=== PATIENT | male | born 1990 | race Caucasian/White ===

== ENCOUNTER 2023-11-01 10:48 | Emergency (ER) | payer SELFPAY ==
--- NOTE | ~2023-11-01 | XR_ITS ---
EXAMINATION: XR finger 1st RT min 2V DATE: 11/01/2023 15:15 INDICATION: Right thumb pain and swelling. TECHNIQUE: 3 views of right thumb were obtained. COMPARISON: None. FINDINGS: Bone alignment is normal. No fracture. There is no evidence of osteomyelitis. Joint spaces are normal. IMPRESSION: 1. Normal right thumb. Reviewed, dictated and finalized at location A. R MAN IMPRESSION: 1. Normal right thumb.
[2023-11-01 11:35] VITALS: BP 133/77; PULSE 100; RESP 15; TEMP 36.8; O2SAT 100
--- NOTE | 2023-11-01 15:02 | ED.WOUNDLAC ---
HPI - Wound/Laceration General Chief Complaint: Wound/Laceration Stated Complaint: wound - RIGHT thumb (FB on anx), diabetic Time Seen by Provider: 11/01/23 15:02 History of Present Illness HPI narrative: Patient is a 33-year-old male with history of type 1 diabetes here with right thumb wound x2 weeks. He notes that he works with [employer] and believes he may have gotten a small piece of glass in his right thumb about 2 weeks ago. He has been monitoring at home it seemed to worsen. He went in to a urgent care outpatient in the last week and they performed an I and D, attempted to find a possible foreign body in his thumb and started him on Bactrim. He has had continued worsening of his pain and swelling. The swelling of his thumb limits his ability to bend the thumb. He denies any drainage from the wound. No fever, chills. He does note that his blood surgars have been running high in the 200s at home. Last short acting bolus was 6 units given around 1 pm. Related Data Allergies Allergy/AdvReac Type Severity Reaction Status Date / Time amoxicillin Allergy Unknown Verified 11/01/23 16:47 Review of Systems Review of Systems: All systems reviewed & are unremarkable except as noted in HPI and below Exam Narrative: GENERAL: Well-appearing, well-nourished, and in no acute distress. HEAD: Normocephalic, atraumatic. EYES: PERRLA and EOMI. ENT: Nares clear. Mucous membranes moist. NECK: Supple. CHEST: Clear to auscultation. No respiratory distress. HEART: Regular rate and rhythm. Normal peripheral pulses. ABDOMEN: Soft, nontender, nondistended. EXTREMITIES: Normal range of motion. No edema. SKIN: Erythema to the tip of the right thumb extending from the IP joint distally. Corresponding swelling present with yellow/white discoloration over the pulp of the thumb. Tender to touch. NEURO: No focal deficits. Alert and oriented x3. PSYCH: Normal mood and affect. Course Course Emergency Course: Chart review performed. Patient here with thumb wound and high blood sugars. Triage vitals normal. Patient seen evaluated, nontoxic appearing. He does have an mildly elevated blood glucose at 273. Suspect felon vs abscess at site of prior I&D based on exam. Basic lab work, CRP/ESR, DKA labs ordered. Discussed need for I&D with patient. Agreeable. Lab work and imaging reviewed. No leukocytosis, venous pH elevated at 7.5, no anion gap, unlikely DKA. Attempt at lateral approach to I&D with dissection, terminated due to poor patient tolerance. Small amount of purulent discharge from the wound itself. Kept open, applied bacitracin. Will refer to hand surgery and start on clindamycin. The results of pertinent diagnostic studies and exam findings were discussed. The patient?s provisional diagnosis and plan of care were discussed with the patient and present family. The patient and/or present family expressed understanding of the diagnosis and plan. The nurse was instructed to provide written instructions and appropriate follow-up information. The patient understands their need and responsibility to obtain additional follow-up as instructed. The risks of medications administered and prescribed were discussed with the patient and family present. Vital Signs Vital signs: Vital Signs Temperature 98.2 F 11/01/23 11:35 Pulse Rate 100 11/01/23 11:35 Respiratory Rate 15 11/01/23 11:35 Blood Pressure 133/77 11/01/23 11:35 Pulse Oximetry 100 11/01/23 11:35 Oxygen Delivery Room Air 11/01/23 11:35 Temperature 98.2 F 11/01/23 11:35 Pulse Rate 100 11/01/23 11:35 Respiratory Rate 15 11/01/23 11:35 Blood Pressure 133/77 11/01/23 11:35 Pulse Oximetry 100 11/01/23 11:35 Oxygen Delivery Room Air 11/01/23 11:35 Procedures Abscess I/D hand: Date of Incision: 11/01/23 Time of Incision: 19:28 Side (if applicable): right Local Anesthetic: lidocaine 1% Amount of anesthesia used (mL):
[2023-11-01 15:31] LABS: Fractional Inspired Oxygen 21 %; HCO3 VBG 22.7 mEq/l (24.0-30.0); PO2 VBG 49.4 mmHg (35.0-45.0)
[2023-11-01 15:32] LABS: Device ROOM AIR; PCO2 VBG 27.3 mmHg (42.0-48.0); pH VBG 7.538 (7.300-7.400)
[2023-11-01 15:44] LABS: Glucose Point of Care 273 mg/dl (65-105)
[2023-11-01 15:51] LABS: Basophils Absolute Auto 0.1 K/mm3 (0.0-0.1); Basophils Percent Auto 0.6 % (0.2-1.2); Eosinophils Absolute Auto 0.3 K/mm3 (0-0.3); Eosinophils Percent Auto 2.5 % (0-4.4); Hematocrit 45.9 % (42.0-52.0); Hemoglobin 14.9 g/dL (14.0-18.0); Immature Granulocyte Absolute 0.03 K/mm3 (0.00-0.031); Immature Granulocyte Percent A 0.3 % (0-0.5); Lymphocytes Absolute Auto 1.91 K/mm3 (0.9-3.2); Lymphocytes Percent Auto 19.1 % (18.3-44.2); Mean Corpuscular HGB Conc 32.5 g/dl (32-36); Mean Corpuscular Hemoglobin 30.4 pg (26-34); Mean Corpuscular Volume 93.7 fl (80-100); Mean Platelet Volume 11.3 fl (7.4-10.4); Monocytes Absolute Auto 0.6 K/mm3 (0.1-0.6); Monocytes Percent Auto 6.2 % (2.6-8.5); Neutrophils Absolute Auto 7.2 K/mm3 (1.3-6.7); Neutrophils Percent Auto 71.3 % (45.5-73.1); Platelet Count Result 216 k/mm3 (150-375); Red Cell Distribution Width 12.6 % (11.5-14.5)
[2023-11-01 16:18] LABS: Erythrocyte Sedimentation Rate 9 mm/hr (0-20)
[2023-11-01] MEDS: CLINDAMYCIN HCL 150 MG CAP 600 MG PO (16:57)
[2023-11-01 17:50] LABS: Alanine Aminotransferase 14 U/L (6-50); Albumin Level 4.2 g/dL (3.5-5.1); Alkaline Phosphatase 105 U/L (38-126); Anion Gap 5 mmol/L (8-16); Aspartate Amino Transferase 18 U/L (17-59); Bilirubin,Total 0.4 mg/dL (0.2-1.3); Blood Urea Nitrogen 13 mg/dL (9-20); CRP 2.1 mg/dL (<1.0); Carbon Dioxide 29 mmol/L (22-30); Chloride 101 mmol/L (98-107); Estimated CRCL calculation 142 ml/min; Estimated Glomerular Filt Rate > 60; Glucose 235 mg/dL (65-110); Potassium 4.4 mmol/L (3.4-5.0); Sodium 135 mmol/L (137-145)
--- NOTE | 2023-11-01 19:15 | PC.NURSE ---
Report received from CARMINE Smyth. Assumed care of patient at this time.
[2023-11-01] MEDS: ACETAMINOPHEN 500 MG TABLET 1000 MG PO (19:55)
[2023-11-01 20:01] VITALS: BP 137/88; PULSE 80; RESP 17; TEMP 36.6; O2SAT 97
== END 2023-11-01 20:03 | disposition home or self-care (01) ==
PROVIDERS: Emergency Provider Student in an Organized Health Care Education/Training Program
DX: L03.011 Cellulitis of right finger (principal)
CPT/HCPCS: 26010; 36415; 73140; 80053; 82803; 82948; 85025; 85055; 85652; 86140; 99283; A9270

== ENCOUNTER → 2023-11-06 09:29 | Outpatient (CLI) | payer OTHER, SELFPAY ==
--- NOTE | ~2023-11-06 | US_ITS ---
EXAMINATION: US soft tissue UE RT DATE: 11/06/2023 09:51 INDICATION: Foreign body at the right thumb TECHNIQUE: Multiple grayscale and Doppler ultrasound images of the palmar aspect of the right thumb w ere obtained. COMPARISON: Radiographs dated 11/01/2023 FINDINGS: There is a blisterlike elevation of the skin at the region of concern with small anechoic subdermal f luid collection extending approximately 2.4 cm x 1.6 cm extent and measuring up to 2 mm in thickness. There appears be a small defect in the skin surface. Medially deep to the defect and deep to the flu id collection there appears be an additional hypoechoic tract extending into an ill-defined approxima tely 1 cm diameter region of the palmar fat pad with mixed echogenic fat and anechoic fluid consisten t with phlegmonous change. No evident foreign body identified. IMPRESSION: 1. Small region of phlegmonous change at the thumb palmar fat pad with more superficial thin crescent ic blisterlike subdermal abscess. No evident foreign body. Reviewed, dictated and finalized at location A. T PROTECTION GUARD IMPRESSION: 1. Small region of phlegmonous change at the thumb palmar fat pad with more sup erficial thin crescentic blisterlike subdermal abscess. No evident foreign body .
== END ==
PROVIDERS: PCP Plastic Surgery; Visit Provider Plastic Surgery
DX: L08.9 Local infection of the skin and subcutaneous tissue, unspecified (principal); S60.359A Superficial foreign body of unspecified thumb, initial encounter; X58.XXXA Exposure to other specified factors, initial encounter
CPT/HCPCS: 76882

== ENCOUNTER 2023-11-07 07:04 | Day surgery (SDC) | payer OTHER, SELFPAY ==
[2023-11-05 14:45] VITALS: BMI 21.5
--- NOTE | 2023-11-06 11:42 | P.PNAN_ITS ---
Anes - Initial Pre Proc Eval Procedure: Operation Date: 11/07/23 08:30 Proposed Procedures p Incision and Drainage Right Thumb, Possible Excision Deep Foreign Body - Cruz Grissom MD Date/Time: 11/06/23 11:42 Surgeon: Cruz Grissom MD Pre Op Diagnosis: Foreign Body Right Thumb with Infection Patient Data Age: 33 Gender: M Height: 1.83 m Weight: 72 kg Allergies Allergy/AdvReac Type Severity Reaction Status Date / Time adhesive tape Allergy Intermediate Hives Verified 11/07/23 07:56 amoxicillin Allergy Intermediate Hives Verified 11/07/23 07:56 Home Medications Medication Instructions Recorded Confirmed Type cephalexin 500 mg capsule 500 mg PO Q6H 10 days #40 caps 11/01/23 11/07/23 Rx clindamycin HCl 150 mg capsule 450 mg PO Q8H 10 days #90 caps 11/01/23 11/07/23 Rx buspirone 7.5 mg tablet 7.5 mg PO DAILY 11/05/23 11/07/23 History escitalopram oxalate 20 mg tablet 20 mg PO DAILY 11/05/23 11/07/23 History insulin aspart U-100 100 unit/mL See Rx Instructions .Route .COMPLEX 11/05/23 11/07/23 History (3 mL) subcutaneous pen insulin degludec 100 unit/mL (3 50 unit subcut HS 11/05/23 11/07/23 History mL) subcutaneous pen pen needle, diabetic 32 gauge x 11/05/23 11/05/23 History (BD Joyce 2nd Gen Pen Needle) Patient hx anesthesia problems: none Family hx anesthesia problems: none Results Review: All pre-operative results and documents have been reviewed as part of the pre- operative evaluation. [facility] Social History Social History Smoking packs per day: 0.5 Smoking cigarettes per day: 10.0 Years smoked: 5 Smoking pack-years: 2.50 Smoking status: Current every day smoker Tobacco type: cigarettes Second hand tobacco smoke exposure: Yes Alcohol intake: current Drinks per week: 4 Alcohol use details: UNTIL RECENTLY PT DRANK 1-2 [place] DAILY Substance use: current Substance use type: marijuana Other substance usage details: ONCE A WEEK Living arrangements: alone Spiritual care concerns: No Anes - Eval Final PreProcedure Day of Procedure 11/06/23 11:42 Patient weight: normal Heart: regular rate and rhythm Lungs: clear to auscultation Airway: Mallampati scale class II Neurological: alert and oriented Last oral intake: >/= 8 hours ASA classification: III Emergent: no Anesthetic plan: proceed Anesthesia type and monitoring: general GIVS and standard monitoring Results Review: All pre-operative results and documents have been reviewed as part of the pre- operative evaluation. Informed Consent: The patient's anesthetic plan and its attendant risks and benefits were discussed with the patient/family/POA. Questions were solicited and answers provided to the satisfaction of the patient/family/POA.
[2023-11-07] MEDS: DEXTROSE 50% 25 GM/50 ML SYRINGE IV PUSH ×2 (07:45→09:36)
[2023-11-07] MEDS: LACTATED RINGERS 1,000 ML 30 ML IV CONT (07:45)
[2023-11-07] MEDS: DEXTROSE 5% IN WATER 250 ML 30 ML IV CONT (07:45)
[2023-11-07 07:52] LABS: Glucose Point of Care 60 mg/dl (65-105)
[2023-11-07 08:03] VITALS: BP 115/69; PULSE 72; RESP 18; TEMP 37.4; O2SAT 100; BMI 21.2
--- NOTE | 2023-11-07 08:05 | SUR.PREOP ---
0715; PT BROUGHT BACK TO PREOP, PT STATES HES NOT FEELING WELL. HE BELIEVES HIS BLOOD SUGAR IS LOW. 0720; ACCUCHECK 60; DR CAZARES NOTIFIED. ORDERS RECEIVED. PT GIVEN 4 OZ APPLE JUICE PO.
--- NOTE | 2023-11-07 08:13 | P.HPUP_ITS ---
History and Physical Update Update Date/Time: 11/07/23 08:13 Patient seen and examined in pre-operative holding area. No interval change in medical history or symptoms. Patient recalls previous discussion of benefits and alternatives to procedure. Continues to desire to proceed with right thumb exploration, I&D and possibel foreign body excision. Reviewed procedure, post- op expectations and risks including but not limited to bleeding, infection, injury to tendon/nerve/vessel, decreased hand function, stiffness, RSD, no change or worsening of symptoms. I discussed the possible use of assistants and their participation in the case. Patient stated understanding and signed the consent form wishing to proceed.
--- NOTE | 2023-11-07 08:13 | P.OP_ITS ---
Procedure Note - Detailed Date of Procedure 11/07/23 Pre-op Diagnosis right thumb infection Post-op Diagnosis Same Procedure Performed right thumb I&D Surgeon Cruz Grissom MD Anesthesia MAC Description of Procedure INFORMED CONSENT:The patient was seen and examined and marked in the pre-op area.? The patient signed the consent form. PROCEDURE IN DETAIL: The patient taken back to OR on the stretcher in supine position. Time out performed with anesthesia, surgeon and staff agreeing on patient's name site and surgery to be performed SCDs were placed on the lower extremities and inflated A tourniquet was placed on {right} upper extremity and antibiotics given IV After anesthesia administered sedation I injected {4}cc 1%lido and 0.5% marcaine plain for digital block in the palm The?{right upper extremity}?was prepped and draped in sterile fashion the??{right upper extremity} was??exsanguinated proximal to the wrsit with Esmarch bandage and tourniquet inflated to 250mmHg i proceeded with making an elliptical incision around the nonviable skin and previous I&D incisions with 15 blade thorugh skin and dermis. Littler scissors were used to spread through subq tissue and the abscess cavity was identified and drained ~3cc purulent material and cultures taken. I proceeded with sharp excsiion of non viable tissue. Further exploration of the wound and affected tissue was performed but no clear tract or foreign body was identified. I irrigated copiously with normal saline then the thumb was soaked in a saline, peroxide, iodine solution for 2 minutes. After further irrigation a 4-0 chromic was used for partial closure of the wound. The incision was covered with xeroform then 4x4s, lisa and cesar after the tourniquet was let down noting the hand was warm and well perfused.? Patient awaken from anesthesia and transferred to recovery in stable condition Complications - none EBL- 1cc Disposition - home in stable conditions [facility] [place] Billing Surgery - Charge Forward: Surgery Billing ([id number] )
--- NOTE | 2023-11-07 08:13 | SUR.PREOP ---
0745; DIFFICULTY STARTING IV. 3RD ATTEMPT SUCCESSFUL. 12.5GM D50 GIVEN IV, D5W AT 30CC/HR STARTED ON IV PUMP. LR TO GRAVITY AT KVO 0800; PT STATES HE FEELS GOOD NOW. SPOUSE REMAINS AT BEDSIDE
[2023-11-07 09:26] VITALS: BP 115/75; PULSE 70; RESP 16; O2SAT 97
[2023-11-07 09:44] LABS: Glucose Point of Care 53 mg/dl (65-105)
--- NOTE | 2023-11-07 09:44 | SUR.PREOP ---
0815; DR CAZARES ORDERED TO CHECK BLOOD SUGAR AGAIN AFTER SURGERY
--- NOTE | 2023-11-07 09:47 | SUR.PHASEII ---
0931; ACCUCHECK IS 53. PT DENIES SYMPTOMS, HOWEVER, PT IS GROGGY POST PROCEDURE. DR CAZARES NOTIFIED. GIVE 12.5GM D50 IVP GIVEN AND GIVE PT APPLE JUICE AND TINO CRACKERS. 0940; PT AWAKE AND ALERT. DENIES PAIN. EATING AND DRINKING NOW. SPOUSE REMAINS AT BEDSIDE
--- NOTE | 2023-11-07 09:47 | WPDANESPN ---
Anes - Prog Note Post-Op Date/Time: 11/07/23 09:47 Cardiovascular status: normal Respiratory status: normal Airway patency: baseline Mental status: baseline Post-Op hydration status: normal Vital Signs: Last Vital Signs Temp 37.4 C 11/07/23 08:03 Pulse 70 11/07/23 09:26 Resp 16 11/07/23 09:26 BP 115/75 11/07/23 09:26 Pulse Ox 97 11/07/23 09:26 O2 Del Method Room Air 11/07/23 09:26 Pain Score (VAS): 0 11/07/23 11/07/23 07:25 09:31 POC Capillary Glucose 60 L 53 L* Patient Feedback: Patient satisfied with anesthetic care.
[2023-11-07 09:53] VITALS: BP 105/69; PULSE 94; RESP 18; O2SAT 100
--- NOTE | 2023-11-07 09:59 | SUR.PHASEII ---
PT AWAKE AND ALERT. STATES HE IS FEELING GOOD.
[2023-11-07 10:10] VITALS: BP 127/86; PULSE 60; RESP 16; O2SAT 100
[2023-11-07 10:28] LABS: Glucose Point of Care 141 mg/dl (65-105)
[2023-11-07 10:30] VITALS: BP 122/79; PULSE 66; RESP 16; O2SAT 100
--- NOTE | 2023-11-07 10:52 | SUR.PHASEII ---
1022, BLOOD SUGAR 141. PT AWAKE AND ALERT. STATES HE FEELS GOOD. DENIES PAIN. EATING AND DRINKING. DR CAZARES NOTIFIED. January PT TO HOME
== END 2023-11-07 10:40 | disposition home or self-care (01) ==
PROVIDERS: PCP Nurse Practitioner Family; Visit Provider Plastic Surgery
PROC: (CPT 26011; principal; 2023-11-07 08:30)
DX: L08.89 Other specified local infections of the skin and subcutaneous tissue (principal)
CPT/HCPCS: 26011

== ENCOUNTER 2023-11-07 11:32 | Outpatient (NON) | payer OTHER, SELFPAY | END 2023-11-07 11:33 | disposition home or self-care (01) | LOC: ANHLAB 11:33 | PROVIDERS: PCP Nurse Practitioner Family; Visit Provider Plastic Surgery | DX: S60.359A Superficial foreign body of unspecified thumb, initial encounter (principal); L08.9 Local infection of the skin and subcutaneous tissue, unspecified; X58.XXXA Exposure to other specified factors, initial encounter | CPT/HCPCS: 87070; 87075; 87205; 88305 ==

== ENCOUNTER 2025-05-16 17:03 | Observation (INO) | payer OTHER, SELFPAY ==
[2025-05-16] VITALS (9 sets, daily range): BP systolic 127–164; BP diastolic 64–141; PULSE 87–114; RESP 15–20; TEMP 36.4–37.1; O2SAT 98–100; BMI 21.8
--- NOTE | ~2025-05-16 | CT_ITS ---
CLINICAL INDICATION: Abdominal pain and vomiting COMPARISON: None. TECHNIQUE: Multiple contiguous axial images of the abdomen and pelvis were performed following the ad ministration of with 100 mL Omnipaque-350 intravenous contrast The dose-length product (DLP) was 238.05 mGy-cm. Automated exposure control and iterative reconstruction technique were employed. FINDINGS/OBSERVATIONS: Visualized lower thorax: The bilateral lung bases are clear. The heart is of normal size, without pericardial effusion. Small hiatal hernia is present. Liver: The liver demonstrates homogeneous enhancement and is not enlarged. Gallbladder and biliary system: The gallbladder is only minimally distended, and otherwise unremarkable. Pancreas: The pancreas enhances homogeneously without ductal dilatation. Spleen: The spleen enhances homogeneously and is not enlarged. Kidneys: The bilateral kidneys enhance symmetrically without hydronephrosis or renal calculi. Adrenal glands: Unremarkable. Gastrointestinal tract: Fecal stasis within the colon. Appendix: The air-filled appendix is of normal caliber (axial series, images 73 through 93) Vasculature: The inferior vena cava is appropriately distended suggesting euvolemia. Lymph nodes: No pathologically enlarged or morphologically suspicious lymph nodes within the retroperitoneum or at the root of the mesentery. Pelvic structures: The bladder is distended, and otherwise unremarkable. The prostate gland is not enlarged. Body wall and musculoskeletal: No significant degenerative disease within the lower thoracic or lumbosacral spine. IMPRESSION: No acute findings within the abdomen or pelvis, as detailed above. Reviewed, dictated and finalized at location A.
--- OUTSIDE RECORDS SUMMARY | 2025-05-16 17:06 | XMS_ITS | Patient Health Record ---
Author Organization [facility] [employer]. Address [address] [place] [address] Care Team Providers Care Waste Machine Operator Name Role Phone Ariana Alarcon [phone] Reason For Referral No Information Encounters Encounter Location Date Provider Diagnosis [facility] Alarcon [address] [place] [address] 08/10/2024 Ariana Alarcon Plan Of Treatment No Information
--- OUTSIDE RECORDS SUMMARY | 2025-05-16 17:06 | XMS_ITS ---
Author Organization [employer] Address [address] [place] [address] Care Team Providers Care Cement Mixer Name Role Phone Ariana Alarcon [phone] REASON FOR VISIT Diabetes Encounters Encounter Location Date Provider Diagnosis [facility] - Ariana Alarcon [address] [place] [address] 08/11/2024 Ariana Alarcon Plan Of Treatment No Information Progress Notes * Taiwo MADRIGALDOB: 1 (34 yo M)Acc No.[id number]:08/11/2024 Progress Notes Patient: Zac FINCHley Provider: Justin Alarcon MD :1990 A ge:33 Y S ex:Male Date:08/11/2024 Address:[address] [place], [place] [id number] Subjective: * Chief Complaints: * 1 . Diabetes. * HPI: D iabetes: 33 yo male comes in to establish care in management of type 2 DM. * Medical History: Objective: * Vitals: Assessment: Plan: * Treatment: * Billing Information: * Visit Code: * Procedure Codes: * Electronic signature of Jaycob Alarcon MD on 05/16/2025 at 05:06 PM CDT Sign off status: Pending * Provider: Justin Alarcon MD Date: 10/11/2023 Generated for Mackenziei ng/Fapennyg/eTransmitting on: 0 05/16/2025 05:06 PM CDT History and Physical Notes * HPI (History of Present Illness) Category Sub-Category Detail Notes Category Not es Diabetes 33 yo male come s in to establish care in management of type 2 DM
--- OUTSIDE RECORDS SUMMARY | 2025-05-16 17:06 | XMS_ITS | Patient Health Record ---
Author Organization [employer] Address [address] [place] [address] Care Team Providers Care Transcriptionist Name Role Phone Ariana Alarcon Unavailable [phone] Reason For Referral No Information Encounters Encounter Location Date Provider Diagnosis [facility] - Ariana Alarcon [address] [place] [address] 08/10/2024 Ariana Alarcon Plan Of Treatment No Information
--- OUTSIDE RECORDS SUMMARY | 2025-05-16 17:06 | XMS_ITS | Clinical Summary ---
Author Organization [facility] [address] Address [address] [place] [id number] Care Team Providers Care Rag Shredder Name Role Phone Ariana Skelton NP Primary Care Provider [phone] Allergies Active Allergy Reactions Criticality Noted Date Comments Amoxicillin Anaphylaxis High 06/07/2022 Medications zinc 50 mg tablet Take by mouth Active lancets miscIndications: Type 1 diabetes mellitus without complication (HCC) Test daily before all meals/snacks and once before bedtime 200 each 3 06/26/20 22 Active blood glucose diagnostic stripIndications :type 2 diabetes mellitus Test daily before all meals/snacks and once before bedtime 200 each 11/26/19 23 Active busPIRone (BUSPAR) 7.5 mg tabletIndication s:Generalized Anxiety Disorder Take 1 tablet (7.5 mg total) by mouth 3 (three) times a day 90 tablet 11 05/07/20 23 Active Additional Information Patient not taking.Reported on 12/08/2024 sulfamethoxazole -trimethoprim (BACTRIM DS) 800-160 mg per tablet 10/24/19 24 Active BD Insulin Syringe Ultra-Fine 0.3 mL 31 gauge x 5/16 syringeIndicatio ns:Type 1 diabetes mellitus with hyperglycemia (HCC) 1 Package 4 (four) times a day 200 each 3 11/20/19 24 Active pen needle, diabetic (Pen Needle) 32 gauge x 5/32 needleIndication s:Type 1 diabetes mellitus with hyperglycemia (HCC) Use as directed once a day. 100 each 11/20/19 24 Active insulin aspart (NovoLOG) 100 unit/mL (3 mL) pen for injectionIndicat ions:Type 1 diabetes mellitus with hyperglycemia (HCC) Inject 10 Units under the skin 3 (three) times a day before meals 15 mL 1 09/15/20 24 Active Additional Information Patient taking differently: 20 Unitssubcutaneous 3 times daily before meals, Reported on 12/08/2024 insulin degludec (TRESIBA) 100 unit/mL (3 mL) pen for injectionIndicat ions:Type 1 diabetes mellitus with hyperglycemia (HCC) Inject 0.45 mL (45 Units total) under the skin nightly 30 mL 1 09/15/20 24 Active Additional Information Patient taking differently: 40 Unitssubcutaneous Nightly, Reported on 12/08/2024 hydrOXYzine (ATARAX) 10 mg tablet Take 1 tablet (10 mg total) by mouth every 8 (eight) hours as needed for anxiety 30 tablet 1 12/09/19 25 Active blood-glucose sensor deviceIndication s:Type 1 diabetes mellitus with hyperglycemia (HCC) Use continuously 1 each 1 12/09/19 25 Active sertraline (ZOLOFT) 50 mg tablet Take 1 tablet (50 mg total) by mouth daily 90 tablet 01/13/20 25 Active Active Problems Problem Noted Date Diagnosed Date Type 1 diabetes mellitus without complication Type 1 diabetes mellitus with hyperglycemia 06/01 Assessment & Plan (01/12/2025 1:24 PM CDT): Still awaiting lab work on pt. Has been >1 year. Referral to Endo placed again. Pt understands importance of establishing with specialist and getting labs done. Assessment & Plan (12/08/2024 5:10 PM CDT): Pt has not seen Endo, has no showed appts d/t different circumstances. Discussed in detail the importance as his A1c has been in the 9-10% range for years and we have been trying to get him with specialist since establishing with us and previous PCP tried also. Discussed compliance and dangers of not establishing/staying up to date with labs, etc. Labs have not been drawn in about 1 year, will get labs today. Pt states he understands he will likely only live to be 40-50 years old and is ok with that. Discussed it doesn't have to be that way. I do think mood plays a role with compliance. I informed pt I did not want stop filling his insulin but I need a little help on his end for proper management from specialist. Pt states understanding and will get me referral information for specialist he wants to see so we can place referral. Ordered Dexcom as it is covered by insurance to hopefully help with monitoring. Assessment & Plan (11/20/2023 4:40 PM VEIN ACCESS TECHNICIAN): A1c x 10/2022 was 11.2%. Patient has not been 100% compliant with his insulin and has not established with Endocrinology (referred to at our initial and previous visit). Patient has also not completed labs from our last visit. Discussed my concern with non-compliance and uncontrolled T1DM and the risks that accompany this condition. Patient verbalizes understanding and states he will make appointment with Endo and get labs drawn tomorrow. I will adjust insulin based on A1c but he needs insulin pump, apparently problem with insurance in the past. Assessment & Plan (05/07/2023 3:45 PM CDT): A1c 10/2022 was 11.2% Patient does note he was not taking his insulin consistently at that time d/t issues with refills and having to use it sparingly. Will need updated labs today. Insulin pump was too expensive for patient in the past per chart review and pt recollection. Referral to Endocrinology placed (appt scheduled for 05/30/23) and refills provided today. Updated labs ordered, home BG readings to be kept. Assessment & Plan (11/28/2022 12:02 AM VEIN ACCESS TECHNICIAN): - chronic, poorly controlled - worse - diagnosed at age of 18 - no Family history of T1DM - 07/21 - low C-peptide, TANIA-65 - antibody present/elevated - 07/21 - Insulin Ab - 0.03 high - he used to be on insulin pump, then Dexcom, became expensive so went back to insulin shots - I I ve recommended endocrinology assistance which he is hesitant about, has used omnopod before as well - insulin glargine 30 units nightly, insulin aspart (does not often take it meal time time) - takes 6-10 units after meals by correction factor of 50 --> refill provided - he tried Tresiba but caused low blood glucose readings - having some issues with hypoglycemia so has had to modify his insulin regimen - check BG 4 times a day - sample dexcom CGM provided to patient in the past and order placed but unable to do cost and patient declines - Foot exam - normal 05/2022 - Eye exam - due, reminder provided, referral placed to [facility] - urine micro albumin - completed today 11/27/2022, normal - obtain other lab work, recommend regular follow -up in 3 months Lab Results Component Value Date HGBA1C 11.2 11/26/2022 HGBA1C 7.5 06/26/2022 Lab Results Component Value Date LDLCALC 50 06/26/2022 Lab Results Component Value Date HGBA1C 11.2 11/26/2022 HGBA1C 7.5 06/26/2022 Lab Results Component Value Date LDLCALC 50 06/26/2022 CREATININE 200 11/26/2022 Assessment & Plan (07/16/2022 6:02 AM CDT): - chronic, well controlled - diagnosed at age of 18 - no Family history of T1DM - he used to be on insulin pump, then Dexcom, became expensive so went back to insulin shots - insulin glargine 30 units nightly, insulin aspart (does not often take it meal time time) - takes 3-5 units after meals bu correction factor of 50 - he tried Tresiba but caused low blood glucose readings - having some issues with hypoglycemia so has had to modify his insulin regimen - check BG 4 times a day - has used omnopod before as well - sample dexcom CGM provided to patient, will order one for him - Foot exam - normal 05/2022 - Eye exam - due, reminder provided - up dates labs 07/21 - low C-peptide, Generalized anxiety disorder-65 - antibody present/elevated 07/21 - Insulin Ab - 0.03 high Lab Results Component Value Date HGBA1C 7.5 06/26/2022 No results found for: LDLCALC Lab Results Component Value Date HGBA1C 7.5 06/26/2022 Lab Results Component Value Date CREATININE 0.80 06/07/2022 GERD (gastroesophageal reflux disease) Assessment & Plan (11/28/2022 12:01 AM VEIN ACCESS TECHNICIAN): - chronic, stable/well controlled - currently on Pepcid 40 mg nightly PrN only - in past used to have heartburn, nausea - continue current management Recommend the following changes: - Avoid trigger foods (such as spicy foods, fried foods, onions, peppermints, chocolate, high acid foods and juices, caffeinated beverages, carbonated beverages, and tomato based products). - Avoid alcohol take. - Avoid routine use of NSAIDs. - Avoid lying down for 2-3 hours after eating. - Weight loss encouraged. - Eat smaller meals. - Avoid tobacco use. - Sleep on left side. - may sleep with bed propped. - Avoid wearing tight clothing that puts pressure on the stomach. Assessment & Plan (06/26/2022 3:45 PM CDT): - chronic, stable - improved since recently started Pantoprazole DR 40 mg daily --> switch to Pepcid 40 mg nightly - he had been struggling with heartburn, nausea - Continue on current meds, encouraged healthy diet and exercise - Discussed increased risk of cdif and vit B12 deficiency with lobsterman use of PPI. Recommend the following changes: - Avoid trigger foods (such as spicy foods, fried foods, onions, peppermints, chocolate, high acid foods and juices, caffeinated beverages, carbonated beverages, and tomato based products). - Avoid alcohol take. - Avoid routine use of NSAIDs. - Avoid lying down for 2-3 hours after eating. - Weight loss encouraged. - Eat smaller meals. - Avoid tobacco use. - Sleep on left side. - may sleep with bed propped. - Avoid wearing tight clothing that puts pressure on the stomach. TANIA (generalized anxiety disorder) 06/26/2022 Assessment & Plan (01/12/2025 1:24 PM CDT): Improvement noted on the Sertraline, will continue at the 50 mg dosing for now. Assessment & Plan (12/08/2024 5:03 PM CDT): Not at goal, Lexapro not working as well. Pt more agitated and having difficulty controlling his anger, denies suicidal or homicidal thoughts at this time. Has been on Wellbutrin, Lexapro, and Buspar in the past. Will cross taper to Sertraline, education provided--Hydroxyzine as needed rx'd. Assessment & Plan (05/07/2023 3:48 PM CDT): Has been doubling his Lexapro 20 mg dose as of late due to worsening anxiety, feels as though it is not working as effectively as it has in the past. Has been on Wellbutrin but experienced side effect of appetite suppression. Discussed switching the Lexapro to different medication but I am a little hesitant to lose any ground we do have. Will add on Buspar and if no improvement or side effects then will likely cross-titrate to different SSRI. Follow up in 4 weeks. Assessment & Plan (11/28/2022 12:06 AM VEIN ACCESS TECHNICIAN): - chronic, well controlled - co-existign depression and anxiety - currently on Lexapro 20 mg daily, it does make him feel a bit tired, will try half a dose, new script for 10 mg lexapro sent - states he smokes Marijuana nightly for anxiety which helps him - continue with current management with changes as made above Lab Results Component Value Date TSH 1.16 06/07/2022 Assessment & Plan (06/26/2022 3:31 PM CDT): - chronic, well controlled - co-existign depression and anxiety - currently on Lexapro 20 mg daily - continue with current management Lab Results Component Value Date TSH 1.16 06/07/2022 Acute bronchitis 05/15/2018 Nausea 05/15/2018 Diarrhea 04/22/2018 Acute kidney injury 01/30/2018 Cannabis abuse 01/30/2018 Metabolic acidosis 01/30/2018 Immunizations Immunization Administration Dates Next Due HPV, Unspecified 12/29/2017 Hep A, Adult 12/29/2017 Hep B, Unspecified 12/29/2017 Influenza, Quadrivalent, Spl it, Intramuscular 12/29/2017 Influenza, Quadrivalent, Spl it, Preservative Free, Intramuscular 07/16/2022 Influenza, Unspecified 05/07/2023(Deferr ed: Patient Refused),09/30/2022(Deferred: Patient Refused),11/29/2021(Deferred: Patient Refused),09/30/2021(Deferred: Patient Refused) MMR 12/29/2017 Meningococcal ACWY, Unspecified 12/29/2017 Tdap 07/16/2022,12/29/2017 Tetanus Immune Globulin 12/29/2017 Medical History Medical History Date Comments GERD (gastroesophageal reflux disease) Anxiety Family History Medical History Relation Name Comments Heart disease Father low testosterone Father Anxiety disorder Mother Breast cancer Mother COPD Paternal Grandmother Relation Name Status Comments Father Alive Mother Alive Paternal Grandmother Alive Social History Tobacco Use Types Packs/Day Years Used Date Smoking Tobacco: Every Day Cigarettes 0.2 11.6 Started: 2013 Vaping Started: 2013 Passive Smoke Exposure: Current Tobacco Cessation:Ready to Q uit: Not Asked; Counseling Given: Not Answered PHQ-2 Answer Date Recorded PHQ-2 Total Score (If total score is 3 or more points, staff should administer the PHQ-9) 0 12/08/2024 Sex and Gender Information Value Date Recorded Sex Assigned at Not on file Legal Sex Male 8:09 AM CDT Gender Identity Not on file Sexual Orientation Not on file Obstetrics History Last Filed Vital Signs Vital Sign Reading Time Taken Comments Blood Pressure 102/72 12/08/2024 2:41 PM CDT Pulse 93 12/08/2024 2:41 PM CDT Temperature 37 C (98.6 F) 12/08/2024 2:41 PM CDT Respiratory Rate 18 11/01/2023 10:21 AM VEIN ACCESS TECHNICIAN Oxygen Saturation 98% 12/08/2024 2:41 PM CDT Inhaled Oxygen Concentration - - Weight 77.6 kg (171 lb) 12/08/2024 2:41 PM CDT Height 182.9 cm (6') 12/08/2024 2:41 PM CDT Body Mass Index 23.19 12/08/2024 2:41 PM CDT Plan of Treatment Health Maintenance Due Date Last Done Comments Hepatitis C Screening 1991 Dilated Eye Exam 2001 Regular Well Visit/Exam 18-64 2009 Pneumococcal vaccine <65 (1 of 2 - PCV) 2010 HPV Vaccines (2 - Male 3-dos e series) 01/26/2018 12/29/2017 Varicella Vaccines (1 of 2 - 13+ 2-dose series) 01/26/2018 Foot Exam 06/26/2023 06/26/2022 TSH Level 11/29/2023 11/28/2022, 06/07/2022 Hemoglobin A1C 05/21/2024 11/21/2023, 0203/2023, 06/26/2022 Albumin Creatinine Ratio, Urine 11/21/2024 Lipid Panel 11/21/2024 11/21/2023, 03/0 09/2022, 06/26/2022 eGFR 11/21/2024 11/21/2023, 03/0 09/2022, 06/07/2022 Influenza Vaccine (#1) 2025 07/16/2022, 2017 Depression Screening 12/08/2025 12/08/2024, 05/07/2023, 11/26/2022, Additional history exists DTaP/Tdap/Td Vaccine (3 - Td or Tdap) 07/16/2032 07/16/2022, 12/29/2017 Hepatitis B Screening Completed 12/29/2017 Procedures Procedure Name Priority Date/Time Associated Diagnosis Comments EGFR Routine 11/21/2023 11:57 AM VEIN ACCESS TECHNICIAN Type 1 diabetes mellitus with hyperglycemia (HCC) HEMOGLOBIN A1C Routine 11/21/2023 11:57 AM VEIN ACCESS TECHNICIAN Type 1 diabetes mellitus with hyperglycemia (HCC) LIPID PANEL Routine 11/21/2023 11:57 AM VEIN ACCESS TECHNICIAN Type 1 diabetes mellitus with hyperglycemia (HCC) ALBUMIN CREATININE RATIO, URINE Routine 11/21/2023 11:57 AM VEIN ACCESS TECHNICIAN Type 1 diabetes mellitus with hyperglycemia (HCC) THYROID FUNCTION CASCADE Routine 11/28/2022 10:35 AM VEIN ACCESS TECHNICIAN Type 1 diabetes mellitus with hyperglycemia (HCC) from Last 3 Months or Most Recently Relevant to Health Maintenance Results * eGFR (11/21/2023 11:57 AM VEIN ACCESS TECHNICIAN) eGFR 120 mL/min/1. 73 m2 SHAKEEL HOPSON Comment: Interpretive Data Reference Interval Normal >/= 90 mL/min/1.73m2 Mildly decreased* 60 - 89 mL/min/1.73m2 Mildly to moderately decreased 45 - 59 mL/min/1.73m2 Moderately to severely decreased 30 - 44 mL/min/1.73m2 Severely decreased 15 - 29 mL/min/1.73m2 Kidney Failure < 15 mL/min/1.73m2 *Relative to young adult level Estimated glomerular filtration rate is determined by the 2020 CKD-EPI equation recommended by the National Kidney Foundation (A Unifying Approach to GFR Estimation: Recommendations of the NKF-ASK Task Force on Reassessing the Inclusion of Race in Diagnosing Kidney Disease, JASN 2020). The CKD-EPI equation should not be used for patients with unstable renal function and has not been validated in children and those over 70. Current interpretive data was last reviewed 2021. Blood 11/21/2023 11:5 7 AM VEIN ACCESS TECHNICIAN 11/21/2023 9:20 PM VEIN ACCESS TECHNICIAN us Ariana Skelton NP LAB BLOOD ORDERABLES Final Resul t Performing Organization Address [facility] de Phone Number SHAKEEL HOPSON [id number] [place], [place] [id number] * Albumin Creatinine Ratio, Urine (11/21/2023 11:57 AM VEIN ACCESS TECHNICIAN) Albumin Ur <12.0 mg/L SHAKEEL Comment: Interpretive Data No reference range established. Current interpretive data was last revised 2019. Creatinine Ur 30.0 mg/dL SHAKEEL Comment: Interpretive Data No reference range established. Current interpretive data was last revised 2019. Albumin Creatinine Ratio, Ur See Comment 1 - 29 SHAKEEL Comment:Unable to calculate Urine 11/21/2023 11:5 7 AM VEIN ACCESS TECHNICIAN 11/21/2023 9:09 PM VEIN ACCESS TECHNICIAN us Ariana Skelton NP LAB URINE ORDERABLES Final Resul t Performing Organization Address City/[facility] Co de Phone Number SHAKEEL HOPSON [id number] Department [place] [address] * (ABNORMAL) Hemoglobin A1c (11/21/2023 11:57 AM VEIN ACCESS TECHNICIAN) Hgb A1C 9.3(H) 4.0 - 5.6 % SHAKEEL HOPSON Estimated Average Glucose 220 mg/dL SHAKEEL HOPSON Comment: The ADA recommends reporting an estimated Average Glucose (eAG) with all Hemoglobin A1c results using the equation derived from a study of 507 normal and diabetic adults. Minority populations were underrepresented and children were not included. (Diabetes Care 31:1894-9817, 2008). The eAG is not equivalent to a fasting glucose. Blood 11/21/2023 11:5 7 AM VEIN ACCESS TECHNICIAN 11/21/2023 9:09 PM VEIN ACCESS TECHNICIAN us Ariana Skelton NP LAB BLOOD ORDERABLES Final Resul t SHAKEEL HOPSON [address] [address] Department [place] [address] * Lipid panel (11/21/2023 11:57 AM VEIN ACCESS TECHNICIAN) Cholesterol 154 30 - 199 mg/dL SHAKEEL HOPSON Comment: Interpretive Data Ages < or = 19 years Acceptable: <170 mg/dL Borderline high: 170-199 mg/dL High: >or= 200 mg/dL Ages > or = 20 years Desirable: <200 mg/dL Borderline high: 200-239 mg/dL High: >or= 240 mg/dL Literature References: 1. Expert Panel on Integrated Guidelines for Cardiovascular Health and Risk Reduction in Children and Adolescents. Pediatrics 2011;128:S213 2. NCEP Expert Panel. Circulation 2004;110:227 Current Interpretive Data was last revised on 2018. Triglycerides 49 <=149 mg/dL SHAKEEL HOPSON Comment: Interpretive Data Ages < or = 9 years Acceptable: <75 mg/dL Borderline high: 75-99 mg/dL High: >or= 100 mg/dL Ages 10 to 20 years Acceptable: <90 mg/dL Borderline high: 90-129 mg/dL High: >or= 130 mg/dL Ages > or = 20 years Desirable: <150 mg/dL Borderline high: 150-199 mg/dL High: 200-499 mg/dL Very high: >or= 499 mg/dL Literature References: 1. Expert Panel on Integrated Guidelines for Cardiovascular Health and Risk Reduction in Children and Adolescents. Pediatrics 2011;128:S213 2. NCEP Expert Panel. Circulation 2004;110:227 Current Interpretive Data was last revised on 2018. HDL 51 >=40 mg/dL SHAKEEL HOPSON Comment: Interpretive Data Ages < or = 19 years Acceptable: >45 mg/dL Borderline low: 40-45 mg/dL Low: <40 mg/dL Ages > or = 20 years Desirable: >or= 60 mg/dL Low: <40 mg/dL Literature References: 1. Expert Panel on Integrated Guidelines for Cardiovascular Health and Risk Reduction in Children and Adolescents. Pediatrics 2011;128:S213 2. NCEP Expert Panel. Circulation 2004;110:227 Current Interpretive Data was last revised on 2018. LDL, calculated 93 <=129 mg/dL SHAKEEL HOPSON Comment: Interpretive Data Ages < or = 19 years Acceptable: <110 mg/dL Borderline high: 110-129 mg/dL High: >or= 130 mg/dL Ages > or = 20 years Optimal: <100 mg/dL Near optimal: 100-129 mg/dL Borderline high: 130-159 mg/dL High: >160 mg/dL Literature References: 1. Expert Panel on Integrated Guidelines for Cardiovascular Health and Risk Reduction in Children and Adolescents. Pediatrics 2011;128:S213 2. NCEP Expert Panel. Circulation 2004;110:227 Current Interpretive Data was last revised on 2018. Non-HDL Cholesterol 103 mg/dL SHAKEEL HOPSON Comment: Interpretive Data Ages < or = 19 years Acceptable: <120 mg/dL Borderline high: 120-144 mg/dL High: >145 mg/dL Ages > or = 20 years When triglycerides are >200 mg/dL, Non-HDL cholesterol is a secondary target of therapy with treatment goals that are 30 mg/dL greater than the LDL cholesterol target. Literature References: 1. Expert Panel on Integrated Guidelines for Cardiovascular Health and Risk Reduction in Children and Adolescents. Pediatrics 2011;128:S213 2. NCEP Expert Panel. Circulation 2004;110:227 Current Interpretive Data was last revised on 2018. Chol/HDL ratio 3 SHAKEEL HOPSON Blood 11/21/2023 11:5 7 AM VEIN ACCESS TECHNICIAN 11/21/2023 9:09 PM VEIN ACCESS TECHNICIAN Ariana Skelton DIE FITTER LAB [place]LOOD [place] [address] [address] Department [place] [address] * TSH reflex to free T4 (11/28/2022 10:35 AM VEIN ACCESS TECHNICIAN) TSH 1.48 0.30 - 4.20 mcIUnit/mL [facility] (YAQUELIN) Blood 11/28/2022 10:3 5 AM VEIN ACCESS TECHNICIAN 11/28/2022 10:53 AM VEIN ACCESS TECHNICIAN us Mio Yang MD LAB BLOOD ORDERABLES Fi nal Result SHAKEEL AHMADI (YAQUELIN) [address] [facility] Department [place] [address] from Last 3 Months or Most Recently Relevant to Health Maintenance Insurance AETNA SIG [id number] AETNA SIG GRV01 Care Teams Rag Shredder Relationship Specialty Start Date End Date Ariana Skelton NP [address] [facility] [address] [place] [address] PCP - General Family Medicine 05/07/23
--- OUTSIDE RECORDS SUMMARY | 2025-05-16 17:06 | XMS_ITS ---
Author Organization [facility] [employer] [facility] [employer]. Address [address] [place] [address] Care Team Providers Care Professor Of Forest Planning Name Role Phone Ariana Alarcon [phone] REASON FOR VISIT Diabetes Encounters Encounter Location Date Provider Diagnosis [facility] Alarcon [address] [place] [address] 08/11/2024 Ariana Alarcon Plan Of Treatment No Information History and Physical Notes * HPI (History of Present Illness) Category Sub-Category Detail Notes Category Not es Migrated HPI Diabetes : 33 y o male comes in to establish care in management of type 2 DM Progress Notes * Taiwo MADRIGALDOB: 1 (34 yo M)Acc No.[id number]:08/11/2024 Progress Notes Patient: Taiwo Smallwood Provider: Justin Alarcon MD :1990 A ge:33 Y S ex:Male Date:08/11/2024 Address:[address] [place], [place] [id number] Subjective: * Chief Complaints: * D iabetes * HPI: M igrated HPI: Diabetes : 33 yo male comes in to establish care in management of type 2 DM. * Electronic signature of Jaycob Alarcon MD on 05/16/2025 at 05:06 PM CDT Sign off status: Pending * Provider: Justin Alarcon MD Date: 1 10/11/2023 Generated for Jennifer ng/Fachristen/eTransmitting on: 0 05/16/2025 05:06 PM CDT
--- OUTSIDE RECORDS SUMMARY | 2025-05-16 17:07 | XMS_ITS | Patient Health Record ---
Author Organization [facility] Address [address] [address] Care Team Providers Care It Infrastructure Manager Name Role Phone Ludy Kramer Unavailable [phone] Reason For Referral No Information Medications Medication SIG (Take, Route, Frequency, Duration) Notes Start Date End Date Status Clotrimazole-Betame thasone 1-0.05 % Cream apply to the affected and surrounding areas of skin by topical route 2 times per day in the morning and evening for 2 weeks External 2; Duration: 14 02/23/2020 Active Diflucan 150 MG Tablet take 1 tablet (150 mg) by oral route once for 1 day Oral 0; Duration: 1 02/23/2020 Active Pen [place] 32 gauge x 5/32 NEEDLE, DISPOSABLE Use to inject insulin QID. MISCELLANEOUS; Duration: 30 02/16/2020 Active NovoLOG FlexPen 100 UNIT/ML Solution Pen-injector inject up to 10 units TID ac by subcutaneous route. Subcutaneous 0; Duration: 02/23/2020 Active OneTouch Ultra Blue Test Strip strip use to check BG QID. 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 , Substance Use :: Alcohol :: Current some day :: note : Use status used: Current some day , Substance Use :: Tobacco :: Never Plan Of Treatment No Information Insurance Providers Payer Name Payer Address Payer Phone Subscriber Number Group Number Insured Name Patient Relationship to Insured Coverage Start Date Coverage End Date [employer] [address] [place] [facility] [address] [place] [address] [id number] Zac Lang Self - patient is the insured 8 [employer] [address] [place] [address] [phone] [id number] Zac Lang Self - patient is the insured 7 7
[2025-05-16 17:41] LABS: Hematocrit 53.0 % (42.0-52.0); Hemoglobin 18.0 g/dL (14.0-18.0); Immature Granulocyte Percent A 0.4 % (0-0.5); Lymphocytes Absolute Auto 1.25 K/mm3 (0.9-3.2); Mean Corpuscular HGB Conc 34.0 g/dl (32-36); Mean Corpuscular Hemoglobin 30.5 pg (26-34); Mean Corpuscular Volume 89.7 fl (80-100); Nucleated Red Blood Cells Absolute Auto 0.000 K/mm3 (0.0-0.012); Nucleated Red Blood Cells Perc 0.0 % (0.0-0.2); Platelet Count Result 308 k/mm3 (150-375); Red Blood Count 5.91 M/mm3 (4.6-6.20); White Blood Count 13.9 K/mm3 (4.5-10.0)
[2025-05-16] MEDS: SODIUM CHLORIDE 0.9% IV 1,000 ML 999 ML IV CONT ×2 (17:59→21:10)
[2025-05-16] MEDS: FAMOTIDINE 20 MG/2 ML VIAL IV PUSH (18:00)
[2025-05-16] MEDS: ONDANSETRON INJ 4 MG/2 ML VIAL IV PUSH (18:00)
[2025-05-16 18:08] LABS: Alanine Aminotransferase 19 U/L (6-50); Albumin Level 5.5 g/dL (3.5-5.1); Alkaline Phosphatase 139 U/L (38-126); Anion Gap 24 mmol/L (4-12); Aspartate Amino Transferase 32 U/L (17-59); Bilirubin,Total 1.4 mg/dL (0.2-1.3); Blood Urea Nitrogen 26 mg/dL (9-20); Calcium 10.5 mg/dL (8.4-10.2); Carbon Dioxide 14 mmol/L (22-30); Chloride 93 mmol/L (98-107); Estimated CRCL calculation 81 ml/min; Estimated Glomerular Filt Rate > 60; Glucose 309 mg/dL (65-110); Lipase 16 U/L (23-300); Magnesium 2.0 mg/dL (1.6-2.3); Potassium 4.6 mmol/L (3.4-5.0); Sodium 131 mmol/L (137-145); Total Protein 9.3 g/dL (6.3-8.2)
--- OUTSIDE RECORDS SUMMARY | 2025-05-16 18:14 | XMS_ITS | Clinical Summary ---
Author Organization [facility] [address] Address [address] [place] [id number] Care Team Providers Care Laboratory Analyst Name Role Phone Ariana Skelton NP Primary Care Provider Allergies Active Allergy Reactions Criticality Noted Date [...] monitoring. Assessment & Plan (11/20/2023 4:40 PM RETAIL SELLING SPECIALIST): A1c x 10/2022 was 11.2%. Patient has [...] kept. Assessment & Plan (11/28/2022 12:02 AM RETAIL SELLING SPECIALIST): - chronic, poorly controlled - worse - [...] - due, reminder provided, referral placed to [facility] - urine micro albumin - completed today [...] disease) Assessment & Plan (11/28/2022 12:01 AM RETAIL SELLING SPECIALIST): - chronic, stable/well controlled - currently on [...] of cdif and vit B12 deficiency with terminologist use of PPI. Recommend the following changes: [...] weeks. Assessment & Plan (11/28/2022 12:06 AM RETAIL SELLING SPECIALIST): - chronic, well controlled - co-existign depression [...] CDT Respiratory Rate 18 11/01/2023 10:21 AM RETAIL SELLING SPECIALIST Oxygen Saturation 98% 12/08/2024 2:41 PM CDT [...] Diagnosis Comments EGFR Routine 11/21/2023 11:57 AM RETAIL SELLING SPECIALIST Type 1 diabetes mellitus with hyperglycemia (HCC) HEMOGLOBIN A1C Routine 11/21/2023 11:57 AM RETAIL SELLING SPECIALIST Type 1 diabetes mellitus with hyperglycemia (HCC) LIPID PANEL Routine 11/21/2023 11:57 AM RETAIL SELLING SPECIALIST Type 1 diabetes mellitus with hyperglycemia (HCC) ALBUMIN CREATININE RATIO, URINE Routine 11/21/2023 11:57 AM RETAIL SELLING SPECIALIST Type 1 diabetes mellitus with hyperglycemia (HCC) THYROID FUNCTION CASCADE Routine 11/28/2022 10:35 AM RETAIL SELLING SPECIALIST Type 1 diabetes mellitus with hyperglycemia (HCC) from Last 3 Months or Most Recently Relevant to Health Maintenance Results * eGFR (11/21/2023 11:57 AM RETAIL SELLING SPECIALIST) eGFR 120 mL/min/1. 73 m2 SHAKEEL HOPSON [...] reviewed 2021. Blood 11/21/2023 11:5 7 AM RETAIL SELLING SPECIALIST 11/21/2023 9:20 PM RETAIL SELLING SPECIALIST us Ariana Skelton NP LAB BLOOD ORDERABLES Final Resul t Performing Organization Address [facility] de Phone Number SHAKEEL HOPSON [id number] [employer] [place], [place] [id number] * Albumin Creatinine Ratio, Urine (11/21/2023 11:57 AM RETAIL SELLING SPECIALIST) Albumin Ur <12.0 mg/L SHAKEEL Comment: Interpretive Data No reference range established. Current interpretive data was last revised 2019. Creatinine Ur 30.0 mg/dL SHAKEEL Comment: Interpretive Data No reference range established. Current interpretive data was last revised 2019. Albumin Creatinine Ratio, Ur See Comment 1 - 29 SHAKEEL Comment:Unable to calculate Urine 11/21/2023 11:5 7 AM RETAIL SELLING SPECIALIST 11/21/2023 9:09 PM RETAIL SELLING SPECIALIST us Ariana Skelton NP LAB URINE ORDERABLES Final Resul t Performing Organization Address [facility] Co de Phone Number SHAKEEL HOPSON [phone] [facility] [employer] [address] [place] [address] * (ABNORMAL) Hemoglobin A1c (11/21/2023 11:57 AM RETAIL SELLING SPECIALIST) Hgb A1C 9.3(H) 4.0 - 5.6 % SHAKEEL HOPSON Estimated Average Glucose 220 mg/dL SHAKEEL HOPSON Comment: The ADA recommends reporting an estimated Average Glucose (eAG) with all Hemoglobin A1c results using the equation derived from a study of 507 normal and diabetic adults. Minority populations were underrepresented and children were not included. (Diabetes Care 31:0086-9557, 2008). The eAG is not equivalent to a fasting glucose. Blood 11/21/2023 11:5 7 AM RETAIL SELLING SPECIALIST 11/21/2023 9:09 PM RETAIL SELLING SPECIALIST us Ariana Skelton NP LAB BLOOD ORDERABLES Final Resul t SHAKEEL HOPSON [id number] Department [place] [address] * Lipid panel (11/21/2023 11:57 AM RETAIL SELLING SPECIALIST) Cholesterol 154 30 - 199 mg/dL SHAKEEL [...] SHAKEEL HOPSON Blood 11/21/2023 11:5 7 AM RETAIL SELLING SPECIALIST 11/21/2023 9:09 PM RETAIL SELLING SPECIALIST Ariana Skelton LITIGATION LEGAL ASSISTANT LAB [place]LOOD [place] [address] [address] Department [place] [address] * TSH reflex to free T4 (11/28/2022 10:35 AM RETAIL SELLING SPECIALIST) TSH 1.48 0.30 - 4.20 mcIUnit/mL [facility] (YAQUELIN) Blood 11/28/2022 10:3 5 AM RETAIL SELLING SPECIALIST 11/28/2022 10:53 AM RETAIL SELLING SPECIALIST us Mio Yang MD LAB BLOOD ORDERABLES Fi nal Result SHAKEEL AHMADI (YAQUELIN) 1 [facility] Department [place] [address] from Last 3 Months or Most Recently Relevant to Health Maintenance Insurance AETNA SIG [id number] AETNA SIG [id number] Care Teams Laboratory Analyst Relationship Specialty Start Date End Date Ariana Skelton NP [address] [facility] [facility] [address] [place] [address] PCP - General Family Medicine 05/07/23
[2025-05-16 18:16] LABS: Beta-Hydroxybutyrate/Acetoace. 3.37 mmol/L (0.02-0.27)
--- NOTE | 2025-05-16 18:28 | ED_ITS ---
HPI - Nausea/Vomiting/Diarrhea General Chief complaint: Nausea/Vomiting/Diarrhea <Rae Ferguson PA-C - Last Filed: 05/16/25 22:50> Stated complaint: n/v <Rae Ferguson PA-C - Last Filed: 05/16/25 22:50> Time Seen by Provider: 05/16/25 17:20 <Rae Ferguson PA-C - Last Filed: 05/16/25 22:50> Source: patient <BETSY Luu Last Filed: 05/16/25 22:50> Mode of arrival: ambulatory <BETSY Luu Last Filed: 05/16/25 22:50> Limitations: no limitations <Rae Ferguson PA-C - Last Filed: 05/16/25 22:50> History of Present Illness HPI Narrative: This is a 34 year old male that presents to the ER for dehydration. Reports he was working outside all day yesterday. Has had diffuse abdominal pain, nausea, vomiting today. His blood sugars have been elevated. History of type 1 diabetes. <BETSY Luu Last Filed: 05/16/25 22:50> Related Data Home medications: Home Medications ?Medication ?Instructions ?Recorded ?Confirmed ?Last Taken ?Type buspirone 7.5 mg tablet 7.5 mg PO DAILY 11/05/23 11/07/23 11/06/23 History escitalopram oxalate 20 mg tablet 20 mg PO DAILY 11/05/23 11/07/23 11/06/23 History insulin aspart U-100 100 unit/mL See Rx Instructions .Route .COMPLEX 11/05/23 11/07/23 11/06/23 History (3 mL) subcutaneous pen insulin degludec 100 unit/mL (3 50 unit subcut HS 11/05/23 11/07/23 11/06/23 History mL) subcutaneous pen pen needle, diabetic 32 gauge x 11/05/23 11/05/23 Unknown History (BD Joyce 2nd Gen Pen Needle) <BETSY Luu Last Filed: 05/16/25 22:50> Allergies/Adverse reactions: Allergies Allergy/AdvReac Type Severity Reaction Status Date / Time adhesive tape Allergy Intermediate Hives Verified 05/16/25 17:13 amoxicillin Allergy Intermediate Hives Verified 05/16/25 17:13 <Rae Ferguson PA-C - Last Filed: 05/16/25 22:50> Review of Systems 2 Review of Systems: All systems reviewed & are unremarkable except as noted in HPI and below <Rae Ferguson PA-C - Last Filed: 05/16/25 22:50> PMFSH Past Medical History Medical History: Medical History (Updated 05/16/25 @ 22:48 by Rae Ferguson PA-C) History of diabetes mellitus <Rae Ferguson PA-C - Last Filed: 05/16/25 22:50> Social History Social History: Social History Smoking packs per day: 0.5 Smoking cigarettes per day: 10.0 Years smoked: 5 Smoking pack-years: 2.50 Smoking status: Current every day smoker Tobacco type: cigarettes Second hand tobacco smoke exposure: Yes Alcohol intake: current Drinks per week: 4 Alcohol use details: UNTIL RECENTLY PT DRANK 1-2 [place] DAILY Substance use: current Substance use type: marijuana Other substance usage details: ONCE A WEEK Living arrangements: alone Spiritual care concerns: No <Rae Ferguson PA-C - Last Filed: 05/16/25 22:50> Exam 2 Narrative: GENERAL: Well-appearing, well-nourished, and in no acute distress. HEAD: Normocephalic, atraumatic. EYES: EOMI. ENT: Nares clear, no rhinorrhea or epistaxis. Mucous membranes moist. Oropharynx without tonsillar hypertrophy exudate or other lesions. Bilateral TMs pearly guevara non-bulging NECK: Supple. No adenopathy or masses. No carotid bruits or JVD CHEST: Clear to auscultation. No respiratory distress. No wheezes rales or rhonchi HEART: Regular rate and rhythm. No murmur heard. Normal peripheral pulses. ABDOMEN: Soft, nontender, nondistended, normal active bowel sounds. EXTREMITIES: Normal range of motion. No edema. SKIN: Warm, dry, no rash. NEURO: No focal deficits. Alert and oriented x3. PSYCH: Normal mood and affect <Rae Ferguson PA-C - Last Filed: 05/16/25 22:50> Course Course Emergency Course: Patient updated on his workup and need for admission <KENDRICK Luu - Last Filed: 05/16/25 22:50> WELDING MACHINE OPERATOR/PA Physician Supervision This visit was performed by both a physician and an APC. I performed all aspects of the MDM as documented. <Brandin Randall MD - Last Filed: 05/16/25 20:26> Consultations Consultation #1: Spoke with hospitalist about patient and workup who accepts admission < Rae Ferguson PA-C - Last Filed: 05/16/25 22:50> Date: 05/16/25 <Rae Ferguson PA-C - Last Filed: 05/16/25 22:50> Consultation #2: Spoke with ethics manager who will consult <Rae Ferguson PA-C - Last Filed: 05/16/25 22:50> Date: 05/16/25 <Rae Ferguson PA-C - Last Filed: 05/16/25 22:50> Vital Signs Vital signs: Vital Signs Temperature 97.6 F 05/16/25 17:08 Pulse Rate 113 H 05/16/25 17:08 Respiratory Rate 16 05/16/25 17:08 Blood Pressure 155/93 H 05/16/25 17:08 Pulse Oximetry 99 05/16/25 17:08 Oxygen Delivery Room Air 05/16/25 17:08 Temperature 97.6 F 05/16/25 17:08 Pulse Rate 103 H 05/16/25 21:34 Respiratory Rate 18 05/16/25 21:34 Blood Pressure 133/64 05/16/25 21:34 Pulse Oximetry 99 05/16/25 21:34 Oxygen Delivery Room Air 05/16/25 17:08 <Rae Ferguson PA-C - Last Filed: 05/16/25 22:50> Vital Signs Temperature 97.6 F 05/16/25 17:08 Pulse Rate 113 H 05/16/25 17:08 Respiratory Rate 16 05/16/25 17:08 Blood Pressure 155/93 H 05/16/25 17:08 Pulse Oximetry 99 05/16/25 17:08 Oxygen Delivery Room Air 05/16/25 17:08 Temperature 97.6 F 05/16/25 17:08 Pulse Rate 103 H 05/16/25 21:34 Respiratory Rate 18 05/16/25 21:34 Blood Pressure 133/64 05/16/25 21:34 Pulse Oximetry 99 05/16/25 21:34 Oxygen Delivery Room Air 05/16/25 17:08 <Brandin Randall MD - Last Filed: 05/16/25 20:26> MDM - Nausea/Vomiting/Diarrhea MDM Narrative Medical decision making narrative: Patient presents emergency department for abdominal pain, nausea and vomiting. History of type 1 diabetes. Patient is afebrile and nontoxic appearing. Tachycardic upon arrival, this normalized with IV fluids. CBC with leukocytosis to 13.9. Metabolic panel with gap of 24, bicarb of 14. Lipase is normal. Beta hydroxybutyrate is elevated at 3.37. Urine with 2+ ketones. CT abdomen pelvis without acute findings. Patient hydrated with IV fluids, started on insulin drip. Will be admitted to the ICU for further management of DKA < Rae Ferguson PA-C - Last Filed: 05/16/25 22:50> Differential Diagnosis Differential diagnosis: Likely food poisoning, gastroenteritis, dehydration and other (Electrolyte derangement, SHELIA, DKA, biliary colic, GERD, esophagitis, pancreatitis) <Rae Ferguson PA-C - Last Filed: 05/16/25 22:50> Lab Data Attestation: I reviewed the patient's lab results. <Rae Ferguson PA-C - Last Filed: 05/16/25 22:50> Result diagrams: 05/16/25 17:32 05/16/25 17:32 <Rae Ferguson PA-C - Last Filed: 05/16/25 22:50> Labs: Lab Results 05/16/25 05/16/25 05/16/25 Range/Units 17:32 17:32 17:32 WBC 13.9 H (4.5-10.0) K/mm3 RBC 5.91 (4.6-6.20) M/mm3 Hgb 18.0 D (14.0-18.0) g/dL Hct 53.0 H (42.0-52.0) % MCV 89.7 (80-100) fl MCH 30.5 (26-34) pg MCHC 34.0 (32-36) g/dl RDW 13.2 (11.5-14.5) % Plt Count 308 (150-375) k/mm3 MPV 11.2 H (7.4-10.4) fl Immature Gran % (Auto) 0.4 (0-0.5) % Neut % (Auto) 86.7 H (45.5-73.1) % Lymph % (Auto) 9.0 L (18.3-44.2) % [place] % (Auto) 3.5 (2.6-8.5) % Eos % (Auto) 0.1 (0-4.4) % Baso % (Auto) 0.3 (0.2-1.2) % Lymph # (Auto) 1.25 (0.9-3.2) K/mm3 [place] # (Auto) 0.5 (0.1-0.6) K/mm3 Eos # (Auto) 0.0 (0-0.3) K/mm3 Baso # (Auto) 0.0 (0.0-0.1) K/mm3 Abs Immat Gran (auto) 0.06 H (0.00-0.031) K/mm3 Absolute Neuts (auto) 12.0 H (1.3-6.7) K/mm3 Absolute Nucleated RBC 0.000 (0.0-0.012) K/mm3 Nucleated RBC % 0.0 (0.0-0.2) % Methemoglobin (0-1.5) %THb Sodium Cancelled 131 L Potassium Cancelled 4.6 Chloride Cancelled Carbon Dioxide Anion Gap BUN Creatinine Estim Creat Clear Calc Estimated GFR Glucose POC Capillary Glucose (65-105) mg/dl Hemoglobin A1c (<5.7) % Calcium Phosphorus (2.5-4.5) mg/dL Magnesium (1.6-2.3) mg/dL Total Bilirubin AST ALT Alkaline Phosphatase Total Protein Albumin Lipase Beta-Hydroxybutyrate/Acetoacetate (0.02-0.27) mmol/L Urine Color (Yellow) Urine Appearance (Clear) Urine pH (5.0-9.0) Ur Specific [place] (1.001-1.035) Urine Protein (Negative) mg/dL Urine Glucose (UA) (Negative) mg/dL Urine Ketones (Negative) mg/dL Ur Blood (Man) (Negative) Urine Nitrate (Negative) Urine Bilirubin (Negative) Urine Urobilinogen (<2.0) mg/dL Add Ur Microanalysis Leukocyte Esterase Rfl (Negative) BUZZ/UL Urine RBC (0-2) /hpf Urine WBC (0-3) /hpf Ur Squamous Epith Cells (Few) /hpf Urine Bacteria /hpf Urine Casts 05/16/25 05/16/25 05/16/25 Range/Units 17:32 17:32 17:32 WBC (4.5-10.0) K/mm3 RBC (4.6-6.20) M/mm3 Hgb (14.0-18.0) g/dL Hct (42.0-52.0) % MCV (80-100) fl MCH (26-34) pg MCHC (32-36) g/dl RDW (11.5-14.5) % Plt Count (150-375) k/mm3 MPV (7.4-10.4) fl Immature Gran % (Auto) (0-0.5) % Neut % (Auto) (45.5-73.1) % Lymph % (Auto) (18.3-44.2) % [place] % (Auto) (2.6-8.5) % Eos % (Auto) (0-4.4) % Baso % (Auto) (0.2-1.2) % Lymph # (Auto) (0.9-3.2) K/mm3 [place] # (Auto) (0.1-0.6) K/mm3 Eos # (Auto) (0-0.3) K/mm3 Baso # (Auto) (0.0-0.1) K/mm3 Abs Immat Gran (auto) (0.00-0.031) K/mm3 Absolute Neuts (auto) (1.3-6.7) K/mm3 Absolute Nucleated RBC (0.0-0.012) K/mm3 Nucleated RBC % (0.0-0.2) % Methemoglobin (0-1.5) %THb Sodium Potassium Chloride 93 L Carbon Dioxide Cancelled 14 L Anion Gap Cancelled 24 H BUN Cancelled Creatinine Estim Creat Clear Calc Estimated GFR Glucose POC Capillary Glucose (65-105) mg/dl Hemoglobin A1c (<5.7) % Calcium Phosphorus (2.5-4.5) mg/dL Magnesium (1.6-2.3) mg/dL Total Bilirubin AST ALT Alkaline Phosphatase Total Protein Albumin Lipase Beta-Hydroxybutyrate/Acetoacetate (0.02-0.27) mmol/L Urine Color (Yellow) Urine Appearance (Clear) Urine pH (5.0-9.0) Ur Specific [place] (1.001-1.035) Urine Protein (Negative) mg/dL Urine Glucose (UA) (Negative) mg/dL Urine Ketones (Negative) mg/dL Ur Blood (Man) (Negative) Urine Nitrate (Negative) Urine Bilirubin (Negative) Urine Urobilinogen (<2.0) mg/dL Add Ur Microanalysis Leukocyte Esterase Rfl (Negative) BUZZ/UL Urine RBC (0-2) /hpf Urine WBC (0-3) /hpf Ur Squamous Epith Cells (Few) /hpf Urine Bacteria /hpf Urine Casts 05/16/25 05/16/25 05/16/25 Range/Units 17:32 17:32 17:32 WBC (4.5-10.0) K/mm3 RBC (4.6-6.20) M/mm3 Hgb (14.0-18.0) g/dL Hct (42.0-52.0) % MCV (80-100) fl MCH (26-34) pg MCHC (32-36) g/dl RDW (11.5-14.5) % Plt Count (150-375) k/mm3 MPV (7.4-10.4) fl Immature Gran % (Auto) (0-0.5) % Neut % (Auto) (45.5-73.1) % Lymph % (Auto) (18.3-44.2) % [place] % (Auto) (2.6-8.5) % Eos % (Auto) (0-4.4) % Baso % (Auto) (0.2-1.2) % Lymph # (Auto) (0.9-3.2) K/mm3 [place] # (Auto) (0.1-0.6) K/mm3 Eos # (Auto) (0-0.3) K/mm3 Baso # (Auto) (0.0-0.1) K/mm3 Abs Immat Gran (auto) (0.00-0.031) K/mm3 Absolute Neuts (auto) (1.3-6.7) K/mm3 Absolute Nucleated RBC (0.0-0.012) K/mm3 Nucleated RBC % (0.0-0.2) % Methemoglobin (0-1.5) %THb Sodium Potassium Chloride Carbon Dioxide Anion Gap BUN 26 H D Creatinine Cancelled 1.18 Estim Creat Clear Calc Cancelled 81 Estimated GFR Cancelled Glucose POC Capillary Glucose (65-105) mg/dl Hemoglobin A1c (<5.7) % Calcium Phosphorus (2.5-4.5) mg/dL Magnesium (1.6-2.3) mg/dL Total Bilirubin AST ALT Alkaline Phosphatase Total Protein Albumin Lipase Beta-Hydroxybutyrate/Acetoacetate (0.02-0.27) mmol/L Urine Color (Yellow) Urine Appearance (Clear) Urine pH (5.0-9.0) Ur Specific [place] (1.001-1.035) Urine Protein (Negative) mg/dL Urine Glucose (UA) (Negative) mg/dL Urine Ketones (Negative) mg/dL Ur Blood (Man) (Negative) Urine Nitrate (Negative) Urine Bilirubin (Negative) Urine Urobilinogen (<2.0) mg/dL Add Ur Microanalysis Leukocyte Esterase Rfl (Negative) BUZZ/UL Urine RBC (0-2) /hpf Urine WBC (0-3) /hpf Ur Squamous Epith Cells (Few) /hpf Urine Bacteria /hpf Urine Casts 05/16/25 05/16/25 05/16/25 Range/Units 17:32 17:32 17:32 WBC (4.5-10.0) K/mm3 RBC (4.6-6.20) M/mm3 Hgb (14.0-18.0) g/dL Hct (42.0-52.0) % MCV (80-100) fl MCH (26-34) pg MCHC (32-36) g/dl RDW (11.5-14.5) % Plt Count (150-375) k/mm3 MPV (7.4-10.4) fl Immature Gran % (Auto) (0-0.5) % Neut % (Auto) (45.5-73.1) % Lymph % (Auto) (18.3-44.2) % [place] % (Auto) (2.6-8.5) % Eos % (Auto) (0-4.4) % Baso % (Auto) (0.2-1.2) % Lymph # (Auto) (0.9-3.2) K/mm3 [place] # (Auto) (0.1-0.6) K/mm3 Eos # (Auto) (0-0.3) K/mm3 Baso # (Auto) (0.0-0.1) K/mm3 Abs Immat Gran (auto) (0.00-0.031) K/mm3 Absolute Neuts (auto) (1.3-6.7) K/mm3 Absolute Nucleated RBC (0.0-0.012) K/mm3 Nucleated RBC % (0.0-0.2) % Methemoglobin (0-1.5) %THb Sodium Potassium Chloride Carbon Dioxide Anion Gap BUN Creatinine Estim Creat Clear Calc Estimated GFR > 60 Glucose Cancelled 309 H POC Capillary Glucose (65-105) mg/dl Hemoglobin A1c 8.1 H (<5.7) % Calcium Cancelled 10.5 H Phosphorus 5.3 H (2.5-4.5) mg/dL Magnesium 2.0 (1.6-2.3) mg/dL Total Bilirubin Cancelled AST ALT Alkaline Phosphatase Total Protein Albumin Lipase Beta-Hydroxybutyrate/Acetoacetate (0.02-0.27) mmol/L Urine Color (Yellow) Urine Appearance (Clear) Urine pH (5.0-9.0) Ur Specific [place] (1.001-1.035) Urine Protein (Negative) mg/dL Urine Glucose (UA) (Negative) mg/dL Urine Ketones (Negative) mg/dL Ur Blood (Man) (Negative) Urine Nitrate (Negative) Urine Bilirubin (Negative) Urine Urobilinogen (<2.0) mg/dL Add Ur Microanalysis Leukocyte Esterase Rfl (Negative) BUZZ/UL Urine RBC (0-2) /hpf Urine WBC (0-3) /hpf Ur Squamous Epith Cells (Few) /hpf Urine Bacteria /hpf Urine Casts 05/16/25 05/16/25 05/16/25 Range/Units 17:32 17:32 17:32 WBC (4.5-10.0) K/mm3 RBC (4.6-6.20) M/mm3 Hgb (14.0-18.0) g/dL Hct (42.0-52.0) % MCV (80-100) fl MCH (26-34) pg MCHC (32-36) g/dl RDW (11.5-14.5) % Plt Count (150-375) k/mm3 MPV (7.4-10.4) fl Immature Gran % (Auto) (0-0.5) % Neut % (Auto) (45.5-73.1) % Lymph % (Auto) (18.3-44.2) % [place] % (Auto) (2.6-8.5) % Eos % (Auto) (0-4.4) % Baso % (Auto) (0.2-1.2) % Lymph # (Auto) (0.9-3.2) K/mm3 [place] # (Auto) (0.1-0.6) K/mm3 Eos # (Auto) (0-0.3) K/mm3 Baso # (Auto) (0.0-0.1) K/mm3 Abs Immat Gran (auto) (0.00-0.031) K/mm3 Absolute Neuts (auto) (1.3-6.7) K/mm3 Absolute Nucleated RBC (0.0-0.012) K/mm3 Nucleated RBC % (0.0-0.2) % Methemoglobin (0-1.5) %THb Sodium Potassium Chloride Carbon Dioxide Anion Gap BUN Creatinine Estim Creat Clear Calc Estimated GFR Glucose POC Capillary Glucose (65-105) mg/dl Hemoglobin A1c (<5.7) % Calcium Phosphorus (2.5-4.5) mg/dL Magnesium (1.6-2.3) mg/dL Total Bilirubin 1.4 H AST Cancelled 32 ALT Cancelled 19 Alkaline Phosphatase Cancelled Total Protein Albumin Lipase Beta-Hydroxybutyrate/Acetoacetate (0.02-0.27) mmol/L Urine Color (Yellow) Urine Appearance (Clear) Urine pH (5.0-9.0) Ur Specific [place] (1.001-1.035) Urine Protein (Negative) mg/dL Urine Glucose (UA) (Negative) mg/dL Urine Ketones (Negative) mg/dL Ur Blood (Man) (Negative) Urine Nitrate (Negative) Urine Bilirubin (Negative) Urine Urobilinogen (<2.0) mg/dL Add Ur Microanalysis Leukocyte Esterase Rfl (Negative) BUZZ/UL Urine RBC (0-2) /hpf Urine WBC (0-3) /hpf Ur Squamous Epith Cells (Few) /hpf Urine Bacteria /hpf Urine Casts 05/16/25 05/16/25 05/16/25 Range/Units 17:32 17:32 17:32 WBC (4.5-10.0) K/mm3 RBC (4.6-6.20) M/mm3 Hgb (14.0-18.0) g/dL Hct (42.0-52.0) % MCV (80-100) fl MCH (26-34) pg MCHC (32-36) g/dl RDW (11.5-14.5) % Plt Count (150-375) k/mm3 MPV (7.4-10.4) fl Immature Gran % (Auto) (0-0.5) % Neut % (Auto) (45.5-73.1) % Lymph % (Auto) (18.3-44.2) % [place] % (Auto) (2.6-8.5) % Eos % (Auto) (0-4.4) % Baso % (Auto) (0.2-1.2) % Lymph # (Auto) (0.9-3.2) K/mm3 [place] # (Auto) (0.1-0.6) K/mm3 Eos # (Auto) (0-0.3) K/mm3 Baso # (Auto) (0.0-0.1) K/mm3 Abs Immat Gran (auto) (0.00-0.031) K/mm3 Absolute Neuts (auto) (1.3-6.7) K/mm3 Absolute Nucleated RBC (0.0-0.012) K/mm3 Nucleated RBC % (0.0-0.2) % Methemoglobin (0-1.5) %THb Sodium Potassium Chloride Carbon Dioxide Anion Gap BUN Creatinine Estim Creat Clear Calc Estimated GFR Glucose POC Capillary Glucose (65-105) mg/dl Hemoglobin A1c (<5.7) % Calcium Phosphorus (2.5-4.5) mg/dL Magnesium (1.6-2.3) mg/dL Total Bilirubin AST ALT Alkaline Phosphatase 139 H Total Protein Cancelled 9.3 H Albumin Cancelled 5.5 H Lipase Cancelled Beta-Hydroxybutyrate/Acetoacetate (0.02-0.27) mmol/L Urine Color (Yellow) Urine Appearance (Clear) Urine pH (5.0-9.0) Ur Specific [place] (1.001-1.035) Urine Protein (Negative) mg/dL Urine Glucose (UA) (Negative) mg/dL Urine Ketones (Negative) mg/dL Ur Blood (Man) (Negative) Urine Nitrate (Negative) Urine Bilirubin (Negative) Urine Urobilinogen (<2.0) mg/dL Add Ur Microanalysis Leukocyte Esterase Rfl (Negative) BUZZ/UL Urine RBC (0-2) /hpf Urine WBC (0-3) /hpf Ur Squamous Epith Cells (Few) /hpf Urine Bacteria /hpf Urine Casts 05/16/25 05/16/25 05/16/25 Range/Units 17:32 18:51 20:24 WBC (4.5-10.0) K/mm3 RBC (4.6-6.20) M/mm3 Hgb (14.0-18.0) g/dL Hct (42.0-52.0) % MCV (80-100) fl MCH (26-34) pg MCHC (32-36) g/dl RDW (11.5-14.5) % Plt Count (150-375) k/mm3 MPV (7.4-10.4) fl Immature Gran % (Auto) (0-0.5) % Neut % (Auto) (45.5-73.1) % Lymph % (Auto) (18.3-44.2) % [place] % (Auto) (2.6-8.5) % Eos % (Auto) (0-4.4) % Baso % (Auto) (0.2-1.2) % Lymph # (Auto) (0.9-3.2) K/mm3 [place] # (Auto) (0.1-0.6) K/mm3 Eos # (Auto) (0-0.3) K/mm3 Baso # (Auto) (0.0-0.1) K/mm3 Abs Immat Gran (auto) (0.00-0.031) K/mm3 Absolute Neuts (auto) (1.3-6.7) K/mm3 Absolute Nucleated RBC (0.0-0.012) K/mm3 Nucleated RBC % (0.0-0.2) % Methemoglobin 0.5 (0-1.5) %THb Sodium Potassium Chloride Carbon Dioxide Anion Gap BUN Creatinine Estim Creat Clear Calc Estimated GFR Glucose POC Capillary Glucose (65-105) mg/dl Hemoglobin A1c (<5.7) % Calcium Phosphorus (2.5-4.5) mg/dL Magnesium (1.6-2.3) mg/dL Total Bilirubin AST ALT Alkaline Phosphatase Total Protein Albumin Lipase 16 L Beta-Hydroxybutyrate/Acetoacetate 3.37 H (0.02-0.27) mmol/L Urine Color Yellow (Yellow) Urine Appearance Clear (Clear) Urine pH 5.5 (5.0-9.0) Ur Specific [place] 1.042 H (1.001-1.035) Urine Protein 2+ H (Negative) mg/dL Urine Glucose (UA) 3+ H (Negative) mg/dL Urine Ketones 2+ H (Negative) mg/dL Ur Blood (Man) Negative (Negative) Urine Nitrate Negative (Negative) Urine Bilirubin Negative (Negative) Urine Urobilinogen 1.0 (<2.0) mg/dL Add Ur Microanalysis Reviewed Leukocyte Esterase Rfl Negative (Negative) BUZZ/UL Urine RBC 0-2 (0-2) /hpf Urine WBC 0-5 (0-3) /hpf Ur Squamous Epith Cells Occasional (Few) /hpf Urine Bacteria None seen /hpf Urine Casts -05/16/25 05/16/25 Range/Units 21:16 21:54 WBC (4.5-10.0) K/mm3 RBC (4.6-6.20) M/mm3 Hgb (14.0-18.0) g/dL Hct (42.0-52.0) % MCV (80-100) fl MCH (26-34) pg MCHC (32-36) g/dl RDW (11.5-14.5) % Plt Count (150-375) k/mm3 MPV (7.4-10.4) fl Immature Gran % (Auto) (0-0.5) % Neut % (Auto) (45.5-73.1) % Lymph % (Auto) (18.3-44.2) % [place] % (Auto) (2.6-8.5) % Eos % (Auto) (0-4.4) % Baso % (Auto) (0.2-1.2) % Lymph # (Auto) (0.9-3.2) K/mm3 [place] # (Auto) (0.1-0.6) K/mm3 Eos # (Auto) (0-0.3) K/mm3 Baso # (Auto) (0.0-0.1) K/mm3 Abs Immat Gran (auto) (0.00-0.031) K/mm3 Absolute Neuts (auto) (1.3-6.7) K/mm3 Absolute Nucleated RBC (0.0-0.012) K/mm3 Nucleated RBC % (0.0-0.2) % Methemoglobin (0-1.5) %THb Sodium Cancelled Potassium Cancelled Chloride Cancelled Carbon Dioxide Cancelled Anion Gap Cancelled BUN Cancelled Creatinine Cancelled Estim Creat Clear Calc Cancelled Estimated GFR Cancelled Glucose Cancelled POC Capillary Glucose 270 H (65-105) mg/dl Hemoglobin A1c (<5.7) % Calcium Cancelled Phosphorus (2.5-4.5) mg/dL Magnesium (1.6-2.3) mg/dL Total Bilirubin AST ALT Alkaline Phosphatase Total Protein Albumin Lipase Beta-Hydroxybutyrate/Acetoacetate (0.02-0.27) mmol/L Urine Color (Yellow) Urine Appearance (Clear) Urine pH (5.0-9.0) Ur Specific [place] (1.001-1.035) Urine Protein (Negative) mg/dL Urine Glucose (UA) (Negative) mg/dL Urine Ketones (Negative) mg/dL Ur Blood (Man) (Negative) Urine Nitrate (Negative) Urine Bilirubin (Negative) Urine Urobilinogen (<2.0) mg/dL Add Ur Microanalysis Leukocyte Esterase Rfl (Negative) BUZZ/UL Urine RBC (0-2) /hpf Urine WBC (0-3) /hpf Ur Squamous Epith Cells (Few) /hpf Urine Bacteria /hpf Urine Casts <Rae Ferguson PA-C - Last Filed: 05/16/25 22:50> Lab Results 05/16/25 05/16/25 05/16/25 Range/Units 17:32 17:32 17:32 WBC 13.9 H (4.5-10.0) K/mm3 RBC 5.91 (4.6-6.20) M/mm3 Hgb 18.0 D (14.0-18.0) g/dL Hct 53.0 H (42.0-52.0) % MCV 89.7 (80-100) fl MCH 30.5 (26-34) pg MCHC 34.0 (32-36) g/dl RDW 13.2 (11.5-14.5) % Plt Count 308 (150-375) k/mm3 MPV 11.2 H (7.4-10.4) fl Immature Gran % (Auto) 0.4 (0-0.5) % Neut % (Auto) 86.7 H (45.5-73.1) % Lymph % (Auto) 9.0 L (18.3-44.2) % [place] % (Auto) 3.5 (2.6-8.5) % Eos % (Auto) 0.1 (0-4.4) % Baso % (Auto) 0.3 (0.2-1.2) % Lymph # (Auto) 1.25 (0.9-3.2) K/mm3 [place] # (Auto) 0.5 (0.1-0.6) K/mm3 Eos # (Auto) 0.0 (0-0.3) K/mm3 Baso # (Auto) 0.0 (0.0-0.1) K/mm3 Abs Immat Gran (auto) 0.06 H (0.00-0.031) K/mm3 Absolute Neuts (auto) 12.0 H (1.3-6.7) K/mm3 Absolute Nucleated RBC 0.000 (0.0-0.012) K/mm3 Nucleated RBC % 0.0 (0.0-0.2) % Methemoglobin (0-1.5) %THb Sodium Cancelled 131 L Potassium Cancelled 4.6 Chloride Cancelled Carbon Dioxide Anion Gap BUN Creatinine Estim Creat Clear Calc Estimated GFR Glucose POC Capillary Glucose (65-105) mg/dl Hemoglobin A1c (<5.7) % Calcium Phosphorus (2.5-4.5) mg/dL Magnesium (1.6-2.3) mg/dL Total Bilirubin AST ALT Alkaline Phosphatase Total Protein Albumin Lipase Beta-Hydroxybutyrate/Acetoacetate (0.02-0.27) mmol/L Urine Color (Yellow) Urine Appearance (Clear) Urine pH (5.0-9.0) Ur Specific [place] (1.001-1.035) Urine Protein (Negative) mg/dL Urine Glucose (UA) (Negative) mg/dL Urine Ketones (Negative) mg/dL Ur Blood (Man) (Negative) Urine Nitrate (Negative) Urine Bilirubin (Negative) Urine Urobilinogen (<2.0) mg/dL Add Ur Microanalysis Leukocyte Esterase Rfl (Negative) BUZZ/UL Urine RBC (0-2) /hpf Urine WBC (0-3) /hpf Ur Squamous Epith Cells (Few) /hpf Urine Bacteria /hpf Urine Casts 05/16/25 05/16/25 05/16/25 Range/Units 17:32 17:32 17:32 WBC (4.5-10.0) K/mm3 RBC (4.6-6.20) M/mm3 Hgb (14.0-18.0) g/dL Hct (42.0-52.0) % MCV (80-100) fl MCH (26-34) pg MCHC (32-36) g/dl RDW (11.5-14.5) % Plt Count (150-375) k/mm3 MPV (7.4-10.4) fl Immature Gran % (Auto) (0-0.5) % Neut % (Auto) (45.5-73.1) % Lymph % (Auto) (18.3-44.2) % [place] % (Auto) (2.6-8.5) % Eos % (Auto) (0-4.4) % Baso % (Auto) (0.2-1.2) % Lymph # (Auto) (0.9-3.2) K/mm3 [place] # (Auto) (0.1-0.6) K/mm3 Eos # (Auto) (0-0.3) K/mm3 Baso # (Auto) (0.0-0.1) K/mm3 Abs Immat Gran (auto) (0.00-0.031) K/mm3 Absolute Neuts (auto) (1.3-6.7) K/mm3 Absolute Nucleated RBC (0.0-0.012) K/mm3 Nucleated RBC % (0.0-0.2) % Methemoglobin (0-1.5) %THb Sodium Potassium Chloride 93 L Carbon Dioxide Cancelled 14 L Anion Gap Cancelled 24 H BUN Cancelled Creatinine Estim Creat Clear Calc Estimated GFR Glucose POC Capillary Glucose (65-105) mg/dl Hemoglobin A1c (<5.7) % Calcium Phosphorus (2.5-4.5) mg/dL Magnesium (1.6-2.3) mg/dL Total Bilirubin AST ALT Alkaline Phosphatase Total Protein Albumin Lipase Beta-Hydroxybutyrate/Acetoacetate (0.02-0.27) mmol/L Urine Color (Yellow) Urine Appearance (Clear) Urine pH (5.0-9.0) Ur Specific [place] (1.001-1.035) Urine Protein (Negative) mg/dL Urine Glucose (UA) (Negative) mg/dL Urine Ketones (Negative) mg/dL Ur Blood (Man) (Negative) Urine Nitrate (Negative) Urine Bilirubin (Negative) Urine Urobilinogen (<2.0) mg/dL Add Ur Microanalysis Leukocyte Esterase Rfl (Negative) BUZZ/UL Urine RBC (0-2) /hpf Urine WBC (0-3) /hpf Ur Squamous Epith Cells (Few) /hpf Urine Bacteria /hpf Urine Casts 05/16/25 05/16/25 05/16/25 Range/Units 17:32 17:32 17:32 WBC (4.5-10.0) K/mm3 RBC (4.6-6.20) M/mm3 Hgb (14.0-18.0) g/dL Hct (42.0-52.0) % MCV (80-100) fl MCH (26-34) pg MCHC (32-36) g/dl RDW (11.5-14.5) % Plt Count (150-375) k/mm3 MPV (7.4-10.4) fl Immature Gran % (Auto) (0-0.5) % Neut % (Auto) (45.5-73.1) % Lymph % (Auto) (18.3-44.2) % [place] % (Auto) (2.6-8.5) % Eos % (Auto) (0-4.4) % Baso % (Auto) (0.2-1.2) % Lymph # (Auto) (0.9-3.2) K/mm3 [place] # (Auto) (0.1-0.6) K/mm3 Eos # (Auto) (0-0.3) K/mm3 Baso # (Auto) (0.0-0.1) K/mm3 Abs Immat Gran (auto) (0.00-0.031) K/mm3 Absolute Neuts (auto) (1.3-6.7) K/mm3 Absolute Nucleated RBC (0.0-0.012) K/mm3 Nucleated RBC % (0.0-0.2) % Methemoglobin (0-1.5) %THb Sodium Potassium Chloride Carbon Dioxide Anion Gap BUN 26 H D Creatinine Cancelled 1.18 Estim Creat Clear Calc Cancelled 81 Estimated GFR Cancelled Glucose POC Capillary Glucose (65-105) mg/dl Hemoglobin A1c (<5.7) % Calcium Phosphorus (2.5-4.5) mg/dL Magnesium (1.6-2.3) mg/dL Total Bilirubin AST ALT Alkaline Phosphatase Total Protein Albumin Lipase Beta-Hydroxybutyrate/Acetoacetate (0.02-0.27) mmol/L Urine Color (Yellow) Urine Appearance (Clear) Urine pH (5.0-9.0) Ur Specific [place] (1.001-1.035) Urine Protein (Negative) mg/dL Urine Glucose (UA) (Negative) mg/dL Urine Ketones (Negative) mg/dL Ur Blood (Man) (Negative) Urine Nitrate (Negative) Urine Bilirubin (Negative) Urine Urobilinogen (<2.0) mg/dL Add Ur Microanalysis Leukocyte Esterase Rfl (Negative) BUZZ/UL Urine RBC (0-2) /hpf Urine WBC (0-3) /hpf Ur Squamous Epith Cells (Few) /hpf Urine Bacteria /hpf Urine Casts 05/16/25 05/16/25 05/16/25 Range/Units 17:32 17:32 17:32 WBC (4.5-10.0) K/mm3 RBC (4.6-6.20) M/mm3 Hgb (14.0-18.0) g/dL Hct (42.0-52.0) % MCV (80-100) fl MCH (26-34) pg MCHC (32-36) g/dl RDW (11.5-14.5) % Plt Count (150-375) k/mm3 MPV (7.4-10.4) fl Immature Gran % (Auto) (0-0.5) % Neut % (Auto) (45.5-73.1) % Lymph % (Auto) (18.3-44.2) % [place] % (Auto) (2.6-8.5) % Eos % (Auto) (0-4.4) % Baso % (Auto) (0.2-1.2) % Lymph # (Auto) (0.9-3.2) K/mm3 [place] # (Auto) (0.1-0.6) K/mm3 Eos # (Auto) (0-0.3) K/mm3 Baso # (Auto) (0.0-0.1) K/mm3 Abs Immat Gran (auto) (0.00-0.031) K/mm3 Absolute Neuts (auto) (1.3-6.7) K/mm3 Absolute Nucleated RBC (0.0-0.012) K/mm3 Nucleated RBC % (0.0-0.2) % Methemoglobin (0-1.5) %THb Sodium Potassium Chloride Carbon Dioxide Anion Gap BUN Creatinine Estim Creat Clear Calc Estimated GFR > 60 Glucose Cancelled 309 H POC Capillary Glucose (65-105) mg/dl Hemoglobin A1c 8.1 H (<5.7) % Calcium Cancelled 10.5 H Phosphorus 5.3 H (2.5-4.5) mg/dL Magnesium 2.0 (1.6-2.3) mg/dL Total Bilirubin Cancelled AST ALT Alkaline Phosphatase Total Protein Albumin Lipase Beta-Hydroxybutyrate/Acetoacetate (0.02-0.27) mmol/L Urine Color (Yellow) Urine Appearance (Clear) Urine pH (5.0-9.0) Ur Specific [place] (1.001-1.035) Urine Protein (Negative) mg/dL Urine Glucose (UA) (Negative) mg/dL Urine Ketones (Negative) mg/dL Ur Blood (Man) (Negative) Urine Nitrate (Negative) Urine Bilirubin (Negative) Urine Urobilinogen (<2.0) mg/dL Add Ur Microanalysis Leukocyte Esterase Rfl (Negative) BUZZ/UL Urine RBC (0-2) /hpf Urine WBC (0-3) /hpf Ur Squamous Epith Cells (Few) /hpf Urine Bacteria /hpf Urine Casts 05/16/25 05/16/25 05/16/25 Range/Units 17:32 17:32 17:32 WBC (4.5-10.0) K/mm3 RBC (4.6-6.20) M/mm3 Hgb (14.0-18.0) g/dL Hct (42.0-52.0) % MCV (80-100) fl MCH (26-34) pg MCHC (32-36) g/dl RDW (11.5-14.5) % Plt Count (150-375) k/mm3 MPV (7.4-10.4) fl Immature Gran % (Auto) (0-0.5) % Neut % (Auto) (45.5-73.1) % Lymph % (Auto) (18.3-44.2) % [place] % (Auto) (2.6-8.5) % Eos % (Auto) (0-4.4) % Baso % (Auto) (0.2-1.2) % Lymph # (Auto) (0.9-3.2) K/mm3 [place] # (Auto) (0.1-0.6) K/mm3 Eos # (Auto) (0-0.3) K/mm3 Baso # (Auto) (0.0-0.1) K/mm3 Abs Immat Gran (auto) (0.00-0.031) K/mm3 Absolute Neuts (auto) (1.3-6.7) K/mm3 Absolute Nucleated RBC (0.0-0.012) K/mm3 Nucleated RBC % (0.0-0.2) % Methemoglobin (0-1.5) %THb Sodium Potassium Chloride Carbon Dioxide Anion Gap BUN Creatinine Estim Creat Clear Calc Estimated GFR Glucose POC Capillary Glucose (65-105) mg/dl Hemoglobin A1c (<5.7) % Calcium Phosphorus (2.5-4.5) mg/dL Magnesium (1.6-2.3) mg/dL Total Bilirubin 1.4 H AST Cancelled 32 ALT Cancelled 19 Alkaline Phosphatase Cancelled Total Protein Albumin Lipase Beta-Hydroxybutyrate/Acetoacetate (0.02-0.27) mmol/L Urine Color (Yellow) Urine Appearance (Clear) Urine pH (5.0-9.0) Ur Specific [place] (1.001-1.035) Urine Protein (Negative) mg/dL Urine Glucose (UA) (Negative) mg/dL Urine Ketones (Negative) mg/dL Ur Blood (Man) (Negative) Urine Nitrate (Negative) Urine Bilirubin (Negative) Urine Urobilinogen (<2.0) mg/dL Add Ur Microanalysis Leukocyte Esterase Rfl (Negative) BUZZ/UL Urine RBC (0-2) /hpf Urine WBC (0-3) /hpf Ur Squamous Epith Cells (Few) /hpf Urine Bacteria /hpf Urine Casts 05/16/25 05/16/25 05/16/25 Range/Units 17:32 17:32 17:32 WBC (4.5-10.0) K/mm3 RBC (4.6-6.20) M/mm3 Hgb (14.0-18.0) g/dL Hct (42.0-52.0) % MCV (80-100) fl MCH (26-34) pg MCHC (32-36) g/dl RDW (11.5-14.5) % Plt Count (150-375) k/mm3 MPV (7.4-10.4) fl Immature Gran % (Auto) (0-0.5) % Neut % (Auto) (45.5-73.1) % Lymph % (Auto) (18.3-44.2) % [place] % (Auto) (2.6-8.5) % Eos % (Auto) (0-4.4) % Baso % (Auto) (0.2-1.2) % Lymph # (Auto) (0.9-3.2) K/mm3 [place] # (Auto) (0.1-0.6) K/mm3 Eos # (Auto) (0-0.3) K/mm3 Baso # (Auto) (0.0-0.1) K/mm3 Abs Immat Gran (auto) (0.00-0.031) K/mm3 Absolute Neuts (auto) (1.3-6.7) K/mm3 Absolute Nucleated RBC (0.0-0.012) K/mm3 Nucleated RBC % (0.0-0.2) % Methemoglobin (0-1.5) %THb Sodium Potassium Chloride Carbon Dioxide Anion Gap BUN Creatinine Estim Creat Clear Calc Estimated GFR Glucose POC Capillary Glucose (65-105) mg/dl Hemoglobin A1c (<5.7) % Calcium Phosphorus (2.5-4.5) mg/dL Magnesium (1.6-2.3) mg/dL Total Bilirubin AST ALT Alkaline Phosphatase 139 H Total Protein Cancelled 9.3 H Albumin Cancelled 5.5 H Lipase Cancelled Beta-Hydroxybutyrate/Acetoacetate (0.02-0.27) mmol/L Urine Color (Yellow) Urine Appearance (Clear) Urine pH (5.0-9.0) Ur Specific [place] (1.001-1.035) Urine Protein (Negative) mg/dL Urine Glucose (UA) (Negative) mg/dL Urine Ketones (Negative) mg/dL Ur Blood (Man) (Negative) Urine Nitrate (Negative) Urine Bilirubin (Negative) Urine Urobilinogen (<2.0) mg/dL Add Ur Microanalysis Leukocyte Esterase Rfl (Negative) BUZZ/UL Urine RBC (0-2) /hpf Urine WBC (0-3) /hpf Ur Squamous Epith Cells (Few) /hpf Urine Bacteria /hpf Urine Casts 05/16/25 05/16/25 05/16/25 Range/Units 17:32 18:51 20:24 WBC (4.5-10.0) K/mm3 RBC (4.6-6.20) M/mm3 Hgb (14.0-18.0) g/dL Hct (42.0-52.0) % MCV (80-100) fl MCH (26-34) pg MCHC (32-36) g/dl RDW (11.5-14.5) % Plt Count (150-375) k/mm3 MPV (7.4-10.4) fl Immature Gran % (Auto) (0-0.5) % Neut % (Auto) (45.5-73.1) % Lymph % (Auto) (18.3-44.2) % [place] % (Auto) (2.6-8.5) % Eos % (Auto) (0-4.4) % Baso % (Auto) (0.2-1.2) % Lymph # (Auto) (0.9-3.2) K/mm3 [place] # (Auto) (0.1-0.6) K/mm3 Eos # (Auto) (0-0.3) K/mm3 Baso # (Auto) (0.0-0.1) K/mm3 Abs Immat Gran (auto) (0.00-0.031) K/mm3 Absolute Neuts (auto) (1.3-6.7) K/mm3 Absolute Nucleated RBC (0.0-0.012) K/mm3 Nucleated RBC % (0.0-0.2) % Methemoglobin 0.5 (0-1.5) %THb Sodium Potassium Chloride Carbon Dioxide Anion Gap BUN Creatinine Estim Creat Clear Calc Estimated GFR Glucose POC Capillary Glucose (65-105) mg/dl Hemoglobin A1c (<5.7) % Calcium Phosphorus (2.5-4.5) mg/dL Magnesium (1.6-2.3) mg/dL Total Bilirubin AST ALT Alkaline Phosphatase Total Protein Albumin Lipase 16 L Beta-Hydroxybutyrate/Acetoacetate 3.37 H (0.02-0.27) mmol/L Urine Color Yellow (Yellow) Urine Appearance Clear (Clear) Urine pH 5.5 (5.0-9.0) Ur Specific [place] 1.042 H (1.001-1.035) Urine Protein 2+ H (Negative) mg/dL Urine Glucose (UA) 3+ H (Negative) mg/dL Urine Ketones 2+ H (Negative) mg/dL Ur Blood (Man) Negative (Negative) Urine Nitrate Negative (Negative) Urine Bilirubin Negative (Negative) Urine Urobilinogen 1.0 (<2.0) mg/dL Add Ur Microanalysis Reviewed Leukocyte Esterase Rfl Negative (Negative) BUZZ/UL Urine RBC 0-2 (0-2) /hpf Urine WBC 0-5 (0-3) /hpf Ur Squamous Epith Cells Occasional (Few) /hpf Urine Bacteria None seen /hpf Urine Casts 11-05/16/25 05/16/25 Range/Units 21:16 21:54 WBC (4.5-10.0) K/mm3 RBC (4.6-6.20) M/mm3 Hgb (14.0-18.0) g/dL Hct (42.0-52.0) % MCV (80-100) fl MCH (26-34) pg MCHC (32-36) g/dl RDW (11.5-14.5) % Plt Count (150-375) k/mm3 MPV (7.4-10.4) fl Immature Gran % (Auto) (0-0.5) % Neut % (Auto) (45.5-73.1) % Lymph % (Auto) (18.3-44.2) % [place] % (Auto) (2.6-8.5) % Eos % (Auto) (0-4.4) % Baso % (Auto) (0.2-1.2) % Lymph # (Auto) (0.9-3.2) K/mm3 [place] # (Auto) (0.1-0.6) K/mm3 Eos # (Auto) (0-0.3) K/mm3 Baso # (Auto) (0.0-0.1) K/mm3 Abs Immat Gran (auto) (0.00-0.031) K/mm3 Absolute Neuts (auto) (1.3-6.7) K/mm3 Absolute Nucleated RBC (0.0-0.012) K/mm3 Nucleated RBC % (0.0-0.2) % Methemoglobin (0-1.5) %THb Sodium Cancelled Potassium Cancelled Chloride Cancelled Carbon Dioxide Cancelled Anion Gap Cancelled BUN Cancelled Creatinine Cancelled Estim Creat Clear Calc Cancelled Estimated GFR Cancelled Glucose Cancelled POC Capillary Glucose 270 H (65-105) mg/dl Hemoglobin A1c (<5.7) % Calcium Cancelled Phosphorus (2.5-4.5) mg/dL Magnesium (1.6-2.3) mg/dL Total Bilirubin AST ALT Alkaline Phosphatase Total Protein Albumin Lipase Beta-Hydroxybutyrate/Acetoacetate (0.02-0.27) mmol/L Urine Color (Yellow) Urine Appearance (Clear) Urine pH (5.0-9.0) Ur Specific [place] (1.001-1.035) Urine Protein (Negative) mg/dL Urine Glucose (UA) (Negative) mg/dL Urine Ketones (Negative) mg/dL Ur Blood (Man) (Negative) Urine Nitrate (Negative) Urine Bilirubin (Negative) Urine Urobilinogen (<2.0) mg/dL Add Ur Microanalysis Leukocyte Esterase Rfl (Negative) BUZZ/UL Urine RBC (0-2) /hpf Urine WBC (0-3) /hpf Ur Squamous Epith Cells (Few) /hpf Urine Bacteria /hpf Urine Casts <Brandin Randall MD - Last Filed: 05/16/25 20:26> ABG Data ABG results: 05/16/25 20:24 Puncture Site Right radial ABG pH 7.417 ABG pCO2 30.9 L ABG pO2 105.2 H ABG PO2/FiO2 Ratio 5.01 ABG HCO3 19.5 L ABG O2 Saturation 98.0 ABG O2 Content 23.0 H ABG Base Excess -3.7 A-a Gradient 30.3 Oxyhemoglobin 96.5 Carboxyhemoglobin 1.2 Reduced Hemoglobin 1.8 Total Hemoglobin 16.9 O2 Delivery Device Room air O2 Liters/Min Not Reportable FiO2 21 <Rae Ferguson PA-C - Last Filed: 05/16/25 22:50> 05/16/25 20:24 Puncture Site Right radial ABG pH 7.417 ABG pCO2 30.9 L ABG pO2 105.2 H ABG PO2/FiO2 Ratio 5.01 ABG HCO3 19.5 L ABG O2 Saturation 98.0 ABG O2 Content 23.0 H ABG Base Excess -3.7 A-a Gradient 30.3 Oxyhemoglobin 96.5 Carboxyhemoglobin 1.2 Reduced Hemoglobin 1.8 Total Hemoglobin 16.9 O2 Delivery Device Room air O2 Liters/Min Not Reportable FiO2 21 <Brandin Randall MD - Last Filed: 05/16/25 20:26> Imaging Data Radiologist's impression: ITS Impressions Abdomen/Pelvis CT 05/16/25 19:06 IMPRESSION: No acute findings within the abdomen or pelvis, as detailed above. <Rae Ferguson PA-C - Last Filed: 05/16/25 22:50> Critical Care Time Critical Care Time Critical Care Time: Yes <Rae Ferguson PA-C - Last Filed: 05/16/25 22:50> Total Critical Care Time: 35 <Rae Ferguson PA-C - Last Filed: 05/16/25 22:50> Discharge Plan Discharge Clinical Impression: Diabetic ketoacidosis <Rae Ferguson PA-C - Last Filed: 05/16/25 22:50> Patient Disposition: Still a Patient <BETSY Luu Last Filed: 05/16/25 22:50> Condition: Improved <Rae Ferguson PA-C - Last Filed: 05/16/25 22:50>
[2025-05-16] MEDS: LACTATED RINGERS 1,000 ML 999 ML IV CONT (18:47)
[2025-05-16 19:14] LABS: Add Urine Microscopic? YES; Appearance Urine Clear (Clear); Glucose Urine UA 3+ mg/dL (Negative); Leukocyte Esterase Ur Negative LEU/UL (Negative); Need Manual Microscopic Reviewed; Nitrate Urine Negative (Negative); Specific Grav Ur 1.042 (1.001-1.035)
[2025-05-16 21:05] LABS: Hemoglobin A1C 8.1 % (<5.7)
[2025-05-16 21:07] LABS: Alveolar/Arterial O2 Gradient 30.3 mmHg; Carboxyhemoglobin 1.2 % THb (0-2.0); Fractional Inspired Oxygen 21 %; HCO3 ABG 19.5 mEq/l (22.0-26.0); Methemoglobin ABG 0.5 %THb (0-1.5); Oxygen Content ABG 23.0 %vol (16.0-22.0); Oxygen Saturation ABG 98.0 % (95.0-100.0); PCO2 ABG 30.9 mmHg (35.0-45.0); PO2 ABG 105.2 mmHg (80.0-100.0); PO2 FiO2 Ratio Arterial Blood 5.01 %; Reduced Hemoglobin 1.8 %THb (0-5.0)
[2025-05-16] MEDS: METOCLOPRAMIDE HCL INJ 10 MG/2 ML VIAL IV PUSH (21:10)
[2025-05-16 21:14] LABS: Modified Allen's Test Pass; Site Drawn RIGHT RADIAL
--- NOTE | 2025-05-16 21:15 | PCRCNOTE ---
[facility] not notified of ABG until 1999. Additional [facility] assistance called to obtain ABG
[2025-05-16] MEDS: INSULIN HUMAN REGULAR (*BKC) 100 UNITS in SODIUM CHLORIDE 0.9% IV 99 ML 7 UNITS IV CONT (21:26)
[2025-05-16] MEDS: INSULIN HUMAN REGULAR (*BKC) 100 UNITS/ML 8 UNITS IV PUSH (21:26)
--- NOTE | 2025-05-16 23:21 | PM.IMHP ---
H&P: HPI History of Present Illness Date/Time: 05/16/25 23:21 Chief Complaint: Nausea vomiting that started on the Narrative: 34-year-old male with a past medical history of type 1 diabetes mellitus since the age of [age] years old historically uncontrolled who presented to the ER with nausea vomiting started on the . The patient reports that his primary care physician declined to refill his Lantus until the patient followed up with missionary coordinator due to his historically poorly controlled diabetes. He reports that his A1c is been up to 13 and 14 in the past. Per the patient his primary care physician told him that he was too much reliability to fill the patient's Lantus until he got some direction from the missionary coordinator. Patient was unable to get an appointment with Endocrinology until May. He ran out of Lantus about 2 weeks ago. He reports that he was on Lantus 40 units a day. He initially could not afford to pay the 30 tolerated bottle out of pocket for insulin from [facility] for NPH and regular insulin until a few days ago. He started taking NPH 20-25 units twice a day and regular insulin 10 units with meals. He reports he felt like the regular insulin was not working as well as a NovoLog. He did not realize that regular insulin has a longer onset time. He reports that prior to this he was taking 1 unit of insulin for every 10 carbs and was taking 1 unit of insulin for every 40 mg/dL of glucose above 120. He reports that these ratios have not been changed since he was a teenager. Over the last week he has noticed polydipsia and polyuria. Then 2 days ago he had marked to decrease in urine output and only voided 4 times over the last 48 hours. He started having vomiting yesterday and has proceeded to the point of having dry heaves. Labs in the ER demonstrated DKA. Patient received 3 L fluid bolus prior to my evaluation and he reports feeling significantly better. 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 He reports that he even with ?cooling breaks? he still feels overheated. He states that he felt as dry as the desert. He stated that over the last day or so he had noticed that his heart was racing any felt as if he had some pressure in his chest. He associated this with some increased shortness of breath for the past 1 week. He denies any cough, congestion, fevers or chills. He has no foot wounds. He denies history of peripheral neuropathy or retinopathy. The patient also informed nursing staff that he was recently started on 2 medications for depression. He he lost 1 of the prescription bottles of 1 of his antidepressants. He does not remember which medication that he is missing. He has not had medication for about 2 weeks. Review of Systems Review of Systems: 12 systems were reviewed with pertinent positives and negatives per HPI. Except as documented in the HPI, all other systems were reviewed and are negative. [facility] Past Medical History Medical History (Updated 05/17/25 @ 01:44 by Amy Nieves DO) Anxiety and depression Type 1 diabetes mellitus Since the age of 18 Surgical History Surgical History (Updated 05/17/25 @ 01:42 by Amy Nieves DO) History of incision and drainage (10/2023) Right thumb abscess Family History Family History (Updated 05/17/25 @ 01:45 by Amy Nieves DO) Other No significant family history Social History Social History (Updated 05/17/25 @ 01:47 by Amy Nieves DO) Social History: Patient lives with his of 7 years. He has 2 step children ages 10 and 15 and and his have a 5-year-old son as well. 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 He has a history of light tobacco use in the past but no longer smokes. He used to drink 2 alcoholic beverages a day but has cut back to 2 a week. He smokes marijuana once a week. Code status: Full code Surrogate decision maker: Smoking packs per day: 0.5 Smoking cigarettes per day: 10.0 Years smoked: 5 Smoking pack-years: 2.50 Smoking status: Former smoker Tobacco type: cigarettes Second hand tobacco smoke exposure: Yes Alcohol intake: current Drinks per week: 2 Alcohol use details: UNTIL RECENTLY PT DRANK 1-2 [place] DAILY Substance use: current Substance use type: marijuana Other substance usage details: ONCE A WEEK Last use: 05/14/25 Lack of Transportation: No Lack of Food: Never True Current Housing: I Have Housing Concerned About Future Housing: No Difficulty Paying Gas/Electric Bills: No Difficulty Paying for Meds: YES Currently Unemployed: No Education: High School Diploma/GED Difficulty w/ Childcare or Family Care: No Living arrangements: alone Spiritual care concerns: No Meds Home Medications and Allergies Home Medications ?Medication ?Instructions ?Recorded ?Confirmed ?Type buspirone 7.5 mg tablet 7.5 mg PO DAILY 11/05/23 05/16/25 History escitalopram oxalate 20 mg tablet 20 mg PO DAILY 11/05/23 05/16/25 History pen needle, diabetic 32 gauge x 11/05/23 05/17/25 History 5/32 (BD Joyce 2nd Gen Pen Needle) insulin NPH isoph U-100 human 100 20 unit subcut BID 05/17/25 05/17/25 History unit/mL subcutaneous suspension (Humulin N NPH U-100 Insulin (isophane susp)) insulin regular human 100 unit/mL 10 unit subcut TID 05/17/25 05/17/25 History injection solution (Humulin R Regular U-100 Insulin) Allergies Allergy/AdvReac Type Severity Reaction Status Date / Time adhesive tape Allergy Intermediate Hives Verified 05/17/25 00:19 amoxicillin Allergy Intermediate Hives Verified 05/17/25 00:19 Vital Signs Vital Signs - 24 hr 05/16/25 17:08 05/16/25 18:04 05/16/25 18:06 Temperature 97.6 F Pulse Rate 113 H 93 92 Respiratory Rate 16 18 Blood Pressure 155/93 H 145/83 H 142/79 H Pulse Oximetry 99 99 Oxygen Delivery Room Air 05/16/25 18:06 05/16/25 18:08 05/16/25 21:17 Temperature Pulse Rate 105 H 114 H 87 Respiratory Rate 20 Blood Pressure 153/82 H 164/141 H 139/81 Pulse Oximetry 98 Oxygen Delivery 05/16/25 21:34 05/16/25 22:58 Temperature Pulse Rate 103 H 92 Respiratory Rate 18 16 Blood Pressure 133/64 141/76 H Pulse Oximetry 99 100 Oxygen Delivery Exam Narrative: Weight 73 kg BMI 21.8 Const: Other: No acute distress, height weight proportionate HENMT: Other: Mucous membranes are dry, no oral pharyngeal erythema, fair distension, head is normocephalic atraumatic Eyes: Other: Pupils equal and reactive, no scleral icterus, no conjunctival pallor Neck: Other: No lymphadenopathy, no thyromegaly Resp: Other: Mildly tachypneic, no accessory muscle use, lungs are clear to auscultation bilaterally Cardio: Other: Mild sinus tachycardia, 2+ bilateral radial pedal pulses GI: Other: Soft, nontender, nondistended, positive bowel sounds Skin: Other: Non jaundice, no pallor, no foot wounds Neuro: Other: Alert oriented, speech is clear, no facial asymmetry, no localizing neurologic deficits noted during the course of conversation Extrem: Other: No clubbing, cyanosis or edema, no foot wounds Psych: Other: Appropriate mood and affect, pleasant and cooperative, judgment and insight intact H&P: Results Labs Labs: Laboratory Tests 05/16/25 17:32 05/16/25 21:16 05/16/25 05/16/25 05/16/25 17:32 17:32 17:32 WBC 13.9 H RBC 5.91 Hgb 18.0 D Hct 53.0 H MCV 89.7 MCH 30.5 MCHC 34.0 RDW 13.2 Plt Count 308 MPV 11.2 H Immature Gran % (Auto) 0.4 Neut % (Auto) 86.7 H Lymph % (Auto) 9.0 L [place] % (Auto) 3.5 Eos % (Auto) 0.1 Baso % (Auto) 0.3 Lymph # (Auto) 1.25 [place] # (Auto) 0.5 Eos # (Auto) 0.0 Baso # (Auto) 0.0 Abs Immat Gran (auto) 0.06 H Absolute Neuts (auto) 12.0 H Absolute Nucleated RBC 0.000 Nucleated RBC % 0.0 Puncture Site ABG pH ABG pCO2 ABG pO2 ABG PO2/FiO2 Ratio ABG HCO3 ABG O2 Saturation ABG O2 Content ABG Base Excess A-a Gradient Oxyhemoglobin Carboxyhemoglobin Methemoglobin Reduced Hemoglobin Total Hemoglobin O2 Delivery Device O2 Liters/Min FiO2 Sodium Cancelled 131 L Potassium Cancelled 4.6 Chloride Cancelled Carbon Dioxide Anion Gap BUN Creatinine Estim Creat Clear Calc Estimated GFR Glucose POC Capillary Glucose Hemoglobin A1c Calcium Phosphorus Magnesium Total Bilirubin AST ALT Alkaline Phosphatase Total Protein Albumin Lipase Beta-Hydroxybutyrate/Acetoacetate Urine Color Urine Appearance Urine pH Ur Specific [place] Urine Protein Urine Glucose (UA) Urine Ketones Ur Blood (Man) Urine Nitrate Urine Bilirubin Urine Urobilinogen Add Ur Microanalysis Leukocyte Esterase Rfl Urine RBC Urine WBC Ur Squamous Epith Cells Urine Bacteria Urine Casts 05/16/25 05/16/25 05/16/25 17:32 17:32 17:32 WBC RBC Hgb Hct MCV MCH MCHC RDW Plt Count MPV Immature Gran % (Auto) Neut % (Auto) Lymph % (Auto) [place] % (Auto) Eos % (Auto) Baso % (Auto) Lymph # (Auto) [place] # (Auto) Eos # (Auto) Baso # (Auto) Abs Immat Gran (auto) Absolute Neuts (auto) Absolute Nucleated RBC Nucleated RBC % Puncture Site ABG pH ABG pCO2 ABG pO2 ABG PO2/FiO2 Ratio ABG HCO3 ABG O2 Saturation ABG O2 Content ABG Base Excess A-a Gradient Oxyhemoglobin Carboxyhemoglobin Methemoglobin Reduced Hemoglobin Total Hemoglobin O2 Delivery Device O2 Liters/Min FiO2 Sodium Potassium Chloride 93 L Carbon Dioxide Cancelled 14 L Anion Gap Cancelled 24 H BUN Cancelled Creatinine Estim Creat Clear Calc Estimated GFR Glucose POC Capillary Glucose Hemoglobin A1c Calcium Phosphorus Magnesium Total Bilirubin AST ALT Alkaline Phosphatase Total Protein Albumin Lipase Beta-Hydroxybutyrate/Acetoacetate Urine Color Urine Appearance Urine pH Ur Specific [place] Urine Protein Urine Glucose (UA) Urine Ketones Ur Blood (Man) Urine Nitrate Urine Bilirubin Urine Urobilinogen Add Ur Microanalysis Leukocyte Esterase Rfl Urine RBC Urine WBC Ur Squamous Epith Cells Urine Bacteria Urine Casts 05/16/25 05/16/25 05/16/25 17:32 17:32 17:32 WBC RBC Hgb Hct MCV MCH MCHC RDW Plt Count MPV Immature Gran % (Auto) Neut % (Auto) Lymph % (Auto) [place] % (Auto) Eos % (Auto) Baso % (Auto) Lymph # (Auto) [place] # (Auto) Eos # (Auto) Baso # (Auto) Abs Immat Gran (auto) Absolute Neuts (auto) Absolute Nucleated RBC Nucleated RBC % Puncture Site ABG pH ABG pCO2 ABG pO2 ABG PO2/FiO2 Ratio ABG HCO3 ABG O2 Saturation ABG O2 Content ABG Base Excess A-a Gradient Oxyhemoglobin Carboxyhemoglobin Methemoglobin Reduced Hemoglobin Total Hemoglobin O2 Delivery Device O2 Liters/Min FiO2 Sodium Potassium Chloride Carbon Dioxide Anion Gap BUN 26 H D Creatinine Cancelled 1.18 Estim Creat Clear Calc Cancelled 81 Estimated GFR Cancelled Glucose POC Capillary Glucose Hemoglobin A1c Calcium Phosphorus Magnesium Total Bilirubin AST ALT Alkaline Phosphatase Total Protein Albumin Lipase Beta-Hydroxybutyrate/Acetoacetate Urine Color Urine Appearance Urine pH Ur Specific [place] Urine Protein Urine Glucose (UA) Urine Ketones Ur Blood (Man) Urine Nitrate Urine Bilirubin Urine Urobilinogen Add Ur Microanalysis Leukocyte Esterase Rfl Urine RBC Urine WBC Ur Squamous Epith Cells Urine Bacteria Urine Casts 05/16/25 05/16/25 05/16/25 17:32 17:32 17:32 WBC RBC Hgb Hct MCV MCH MCHC RDW Plt Count MPV Immature Gran % (Auto) Neut % (Auto) Lymph % (Auto) [place] % (Auto) Eos % (Auto) Baso % (Auto) Lymph # (Auto) [place] # (Auto) Eos # (Auto) Baso # (Auto) Abs Immat Gran (auto) Absolute Neuts (auto) Absolute Nucleated RBC Nucleated RBC % Puncture Site ABG pH ABG pCO2 ABG pO2 ABG PO2/FiO2 Ratio ABG HCO3 ABG O2 Saturation ABG O2 Content ABG Base Excess A-a Gradient Oxyhemoglobin Carboxyhemoglobin Methemoglobin Reduced Hemoglobin Total Hemoglobin O2 Delivery Device O2 Liters/Min FiO2 Sodium Potassium Chloride Carbon Dioxide Anion Gap BUN Creatinine Estim Creat Clear Calc Estimated GFR > 60 Glucose Cancelled 309 H POC Capillary Glucose Hemoglobin A1c 8.1 H Calcium Cancelled 10.5 H Phosphorus 5.3 H Magnesium 2.0 Total Bilirubin Cancelled AST ALT Alkaline Phosphatase Total Protein Albumin Lipase Beta-Hydroxybutyrate/Acetoacetate Urine Color Urine Appearance Urine pH Ur Specific [place] Urine Protein Urine Glucose (UA) Urine Ketones Ur Blood (Man) Urine Nitrate Urine Bilirubin Urine Urobilinogen Add Ur Microanalysis Leukocyte Esterase Rfl Urine RBC Urine WBC Ur Squamous Epith Cells Urine Bacteria Urine Casts 05/16/25 05/16/25 05/16/25 17:32 17:32 17:32 WBC RBC Hgb Hct MCV MCH MCHC RDW Plt Count MPV Immature Gran % (Auto) Neut % (Auto) Lymph % (Auto) [place] % (Auto) Eos % (Auto) Baso % (Auto) Lymph # (Auto) [place] # (Auto) Eos # (Auto) Baso # (Auto) Abs Immat Gran (auto) Absolute Neuts (auto) Absolute Nucleated RBC Nucleated RBC % Puncture Site ABG pH ABG pCO2 ABG pO2 ABG PO2/FiO2 Ratio ABG HCO3 ABG O2 Saturation ABG O2 Content ABG Base Excess A-a Gradient Oxyhemoglobin Carboxyhemoglobin Methemoglobin Reduced Hemoglobin Total Hemoglobin O2 Delivery Device O2 Liters/Min FiO2 Sodium Potassium Chloride Carbon Dioxide Anion Gap BUN Creatinine Estim Creat Clear Calc Estimated GFR Glucose POC Capillary Glucose Hemoglobin A1c Calcium Phosphorus Magnesium Total Bilirubin 1.4 H AST Cancelled 32 ALT Cancelled 19 Alkaline Phosphatase Cancelled Total Protein Albumin Lipase Beta-Hydroxybutyrate/Acetoacetate Urine Color Urine Appearance Urine pH Ur Specific [place] Urine Protein Urine Glucose (UA) Urine Ketones Ur Blood (Man) Urine Nitrate Urine Bilirubin Urine Urobilinogen Add Ur Microanalysis Leukocyte Esterase Rfl Urine RBC Urine WBC Ur Squamous Epith Cells Urine Bacteria Urine Casts 05/16/25 05/16/25 05/16/25 17:32 17:32 17:32 WBC RBC Hgb Hct MCV MCH MCHC RDW Plt Count MPV Immature Gran % (Auto) Neut % (Auto) Lymph % (Auto) [place] % (Auto) Eos % (Auto) Baso % (Auto) Lymph # (Auto) [place] # (Auto) Eos # (Auto) Baso # (Auto) Abs Immat Gran (auto) Absolute Neuts (auto) Absolute Nucleated RBC Nucleated RBC % Puncture Site ABG pH ABG pCO2 ABG pO2 ABG PO2/FiO2 Ratio ABG HCO3 ABG O2 Saturation ABG O2 Content ABG Base Excess A-a Gradient Oxyhemoglobin Carboxyhemoglobin Methemoglobin Reduced Hemoglobin Total Hemoglobin O2 Delivery Device O2 Liters/Min FiO2 Sodium Potassium Chloride Carbon Dioxide Anion Gap BUN Creatinine Estim Creat Clear Calc Estimated GFR Glucose POC Capillary Glucose Hemoglobin A1c Calcium Phosphorus Magnesium Total Bilirubin AST ALT Alkaline Phosphatase 139 H Total Protein Cancelled 9.3 H Albumin Cancelled 5.5 H Lipase Cancelled Beta-Hydroxybutyrate/Acetoacetate Urine Color Urine Appearance Urine pH Ur Specific [place] Urine Protein Urine Glucose (UA) Urine Ketones Ur Blood (Man) Urine Nitrate Urine Bilirubin Urine Urobilinogen Add Ur Microanalysis Leukocyte Esterase Rfl Urine RBC Urine WBC Ur Squamous Epith Cells Urine Bacteria Urine Casts 05/16/25 05/16/25 05/16/25 17:32 18:51 20:24 WBC RBC Hgb Hct MCV MCH MCHC RDW Plt Count MPV Immature Gran % (Auto) Neut % (Auto) Lymph % (Auto) [place] % (Auto) Eos % (Auto) Baso % (Auto) Lymph # (Auto) [place] # (Auto) Eos # (Auto) Baso # (Auto) Abs Immat Gran (auto) Absolute Neuts (auto) Absolute Nucleated RBC Nucleated RBC % Puncture Site Right radial ABG pH 7.417 ABG pCO2 30.9 L ABG pO2 105.2 H ABG PO2/FiO2 Ratio 5.01 ABG HCO3 19.5 L ABG O2 Saturation 98.0 ABG O2 Content 23.0 H ABG Base Excess -3.7 A-a Gradient 30.3 Oxyhemoglobin 96.5 Carboxyhemoglobin 1.2 Methemoglobin 0.5 Reduced Hemoglobin 1.8 Total Hemoglobin 16.9 O2 Delivery Device Room air O2 Liters/Min Not Reportable FiO2 21 Sodium Potassium Chloride Carbon Dioxide Anion Gap BUN Creatinine Estim Creat Clear Calc Estimated GFR Glucose POC Capillary Glucose Hemoglobin A1c Calcium Phosphorus Magnesium Total Bilirubin AST ALT Alkaline Phosphatase Total Protein Albumin Lipase 16 L Beta-Hydroxybutyrate/Acetoacetate 3.37 H Urine Color Yellow Urine Appearance Clear Urine pH 5.5 Ur Specific [place] 1.042 H Urine Protein 2+ H Urine Glucose (UA) 3+ H Urine Ketones 2+ H Ur Blood (Man) Negative Urine Nitrate Negative Urine Bilirubin Negative Urine Urobilinogen 1.0 Add Ur Microanalysis Reviewed Leukocyte Esterase Rfl Negative Urine RBC 0-2 Urine WBC 0-5 Ur Squamous Epith Cells Occasional Urine Bacteria None seen Urine Casts 11-05/16/25 05/16/25 05/16/25 21:16 21:54 22:31 WBC RBC Hgb Hct MCV MCH MCHC RDW Plt Count MPV Immature Gran % (Auto) Neut % (Auto) Lymph % (Auto) [place] % (Auto) Eos % (Auto) Baso % (Auto) Lymph # (Auto) [place] # (Auto) Eos # (Auto) Baso # (Auto) Abs Immat Gran (auto) Absolute Neuts (auto) Absolute Nucleated RBC Nucleated RBC % Puncture Site ABG pH ABG pCO2 ABG pO2 ABG PO2/FiO2 Ratio ABG HCO3 ABG O2 Saturation ABG O2 Content ABG Base Excess A-a Gradient Oxyhemoglobin Carboxyhemoglobin Methemoglobin Reduced Hemoglobin Total Hemoglobin O2 Delivery Device O2 Liters/Min FiO2 Sodium Cancelled Potassium Cancelled Chloride Cancelled Carbon Dioxide Cancelled Anion Gap Cancelled BUN Cancelled Creatinine Cancelled Estim Creat Clear Calc Cancelled Estimated GFR Cancelled Glucose Cancelled POC Capillary Glucose 270 H 222 H Hemoglobin A1c Calcium Cancelled Phosphorus Magnesium Total Bilirubin AST ALT Alkaline Phosphatase Total Protein Albumin Lipase Beta-Hydroxybutyrate/Acetoacetate Urine Color Urine Appearance Urine pH Ur Specific [place] Urine Protein Urine Glucose (UA) Urine Ketones Ur Blood (Man) Urine Nitrate Urine Bilirubin Urine Urobilinogen Add Ur Microanalysis Leukocyte Esterase Rfl Urine RBC Urine WBC Ur Squamous Epith Cells Urine Bacteria Urine Casts Impressions Abdomen/Pelvis CT 05/16/25 19:06 IMPRESSION: No acute findings within the abdomen or pelvis, as detailed above. All imaging and EKGs personally reviewed and interpreted. And unless stated otherwise agree with radiologic and cardiology interpretation. Assessment and Plan Assessment and plan (1) DKA, type 1, not at goal: Code(s): E10.10 - Type 1 diabetes mellitus with ketoacidosis without coma Status: Acute (2) Severe dehydration: Code(s): E86.0 - Dehydration Status: Acute (3) Anxiety and depression: Code(s): F41.9 - Anxiety disorder, unspecified; F32.A - Depression, unspecified Status: Acute Plan Patient has DKA secondary to difficulty obtaining insulin. The patient has no underlying infection or other inciting sources for DKA. His diabetes is historically poorly controlled but remarkably his A1c is significantly better than what he has reported in the past with A1c of 8.1%. He was admitted to the ICU within a couple of hours of arriving to the ICU and after receiving 0.25 L fluid bolus as well as maintenance fluids and insulin drip per DKA protocol patient anion gap and serum bicarb had already normalized. The patient had resolution of his nausea vomiting. His tachycardia and also resolved. Subsequently I switch the patient to Lantus in moderate sliding scale insulin as well as mealtime bolus insulin. As the patient's acidosis has already resolved I will cancel the wood boring machine operator consult and as long as the patient is anion gap and serum bicarb remains stable I will plan to transfer the patient to the medical floor in a.m.. On discharge of the patient cannot obtain Lantus he could be discharged on NPH insulin but I discussed with the patient increasing his doses of NPH insulin to 30 units with b.i.d. dosing instead of q.12 hours dosing. Also I recommended to the patient that he continue insulin to carb dosing for his mealtime of 1 unit for every 10 carbs and suggested increasing his correction factor for 1 giving himself 1 unit of insulin for every 20 mg/dL of glucose above 120. And to continue this until follows up with his missionary coordinator. Ideally would be best if we could discharge the patient with a script for Lantus. He would prefer vials of insulin with syringes instead of insulin pens. The importance of frequent Accu-Cheks and glucose monitoring were discussed in detail. Will consult art educator and care coordination. MEDICAL DECISION MAKING NARRATIVE -Spoke with the ED provider in detail regarding patient's evaluation, workup and management -Patient seen and examined at bedside -Collaborated with patient's nurse at the bedside in detail and addressed all concerns -Labs, electrolytes, radiology, investigations and test results reviewed -ED/Consult/Nursing/Ancilliary notes on the chart reviewed and appreciated -Spoke with patient at bedside and discussed care plan in detail. Patient is agreeable with plan. Quality VTE Prophylaxis VTE prophylaxis: pharmacologic ordered (Lovenox 40 mg subQ daily.) Hospitalist [facility] Advance Care Plan I have confirmed that the patient's Advanced Care Plan is present, code status is documented, or surrogate decision maker is listed in patient medical record.: Yes Medication Reconciliation I have utilized all available resources to obtain, update and review the patients current medications (includes all prescriptions, OTC, herbals, cannabis, and nutritional supplements).: Yes
--- NOTE | 2025-05-16 23:40 | ADMGEN ---
This patient, Taiwo Lang, was admitted to Intensive Care Unit-7. Patient/family oriented to hospital policies and general routines including ID bracelet, bed and alarms, visiting hours, pain management, procedures, bathroom and other care routines, personal items, smoking policy, room service/diet, and visiting hours. Information on how to activate the Rapid Response Team has been discussed. Patient/Family are encouraged to report perceived risks to care and to ask questions if they do not understand what they are told or what they should do.
[2025-05-16] MEDS: KCL 20 MEQ/D5/0.45% SOD CHL 1,000 ML 150 ML IV CONT (23:56)
[2025-05-17] VITALS (7 sets, daily range): BP systolic 107–135; BP diastolic 60–83; PULSE 77–101; RESP 15–22; TEMP 36.4–37.1; O2SAT 98–100; BMI 21.8
[2025-05-17 00:34] LABS: Anion Gap 12 mmol/L (4-12); Blood Urea Nitrogen 22 mg/dL (9-20); Calcium 8.9 mg/dL (8.4-10.2); Carbon Dioxide 22 mmol/L (22-30); Chloride 101 mmol/L (98-107); Estimated CRCL calculation 102 ml/min; Estimated Glomerular Filt Rate > 60; Glucose 129 mg/dL (65-110); Potassium 3.8 mmol/L (3.4-5.0); Sodium 135 mmol/L (137-145)
[2025-05-17 01:09] LABS: MRSA (PCR) NOT DETECTED (NOT DETECTE)
[2025-05-17] MEDS: INSULIN GLARGINE (*BKC) 100 UNITS/ML 40 UNITS SUB-Q ×2 (01:25→21:22)
[2025-05-17 04:48] LABS: Hematocrit 42.0 % (42.0-52.0); Hemoglobin 14.2 g/dL (14.0-18.0); Immature Granulocyte Percent A 0.4 % (0-0.5); Lymphocytes Absolute Auto 1.85 K/mm3 (0.9-3.2); Mean Corpuscular HGB Conc 33.8 g/dl (32-36); Mean Corpuscular Hemoglobin 31.0 pg (26-34); Mean Corpuscular Volume 91.7 fl (80-100); Nucleated Red Blood Cells Absolute Auto 0.000 K/mm3 (0.0-0.012); Nucleated Red Blood Cells Perc 0.0 % (0.0-0.2); Platelet Count Result 233 k/mm3 (150-375); Red Blood Count 4.58 M/mm3 (4.6-6.20); White Blood Count 12.8 K/mm3 (4.5-10.0)
[2025-05-17] MEDS: INSULIN ASPART (*BKC) 100 UNITS/ML 7 UNITS SUB-Q (07:37)
[2025-05-17] MEDS: busPIRone HCL 2.5 MG TABLET 7.5 MG PO (08:54)
[2025-05-17] MEDS: ESCITALOPRAM OXALATE 10 MG TABLET 20 MG PO (08:54)
[2025-05-17] MEDS: ENOXAPARIN 40 MG/0.4 ML SYRINGE SUB-Q (08:55)
--- NOTE | 2025-05-17 08:56 | PM.IMPN ---
Progress Note: A&P Assessment and Plan (1) DKA, type 1, not at goal: Code(s): E10.10 - Type 1 diabetes mellitus with ketoacidosis without coma Status: Acute Assessment and Plan: Presented with DKA due to noncompliance from inability to obtain Lantus. Pt was treated with IVF bolus and started on infusion His anion gap is closed and patient has been transition to subcutaneous insulin. Continue diabetic diet Consult process steward and dietitian Consult landcare facilitator to evaluate patient's ability to obtain insulin as an outpatient Continue Lantus at 40 units. Changes with meal insulin to 7 units q.a.c. Continue sliding scale Advance diet (2) Severe dehydration: Code(s): E86.0 - Dehydration Status: Acute Assessment and Plan: Improved with IV fluids (3) Anxiety and depression: Code(s): F41.9 - Anxiety disorder, unspecified; F32.A - Depression, unspecified Status: Acute Assessment and Plan: Continue BuSpar and Lexapro Plan DVT prophylaxis -SCD Nutrition -diabetic diet Code Status - Full Code Subjective Date/time seen: 05/17/25 Her and his symptoms have improved. He came off of insulin infusion. He had turkey sandwich last night and tolerated adequately without any symptoms. Patient denies fever, chest pain, shortness of breath, cough, nausea vomiting, abdominal pain,, diarrhea, headache or constipation. All other symptoms reviewed and were negative Vital signs stable. He is on room air. Review of Systems Review of Systems: All systems reviewed & are unremarkable except as noted in HPI and below (HPI) Exam Narrative: General: Pt is alert awake and in NAD Lungs/Chest: Trachea central Clear BS B/L, No crackles or wheezing. Cardiac: RRR. Normal S1 S2. No murmurs Circulation: Pedal pulses are intact and symmetrical. Abdomen: Normal bowel sounds.. Soft. NT. ND. Extremities: No clubbing, cyanosis or edema. Warm : Ba in place Neurologic: Follows commands. Moves all 4 extremities PERRL Skin: No Rash Objective Data Vital Signs Vital Signs: Vital Signs - 24 hr 05/16/25 17:08 05/16/25 18:04 05/16/25 18:06 Temperature 36.4 C Pulse Rate 113 H 93 92 Respiratory Rate 16 18 Blood Pressure 155/93 H 145/83 H 142/79 H Pulse Oximetry 99 99 Oxygen Delivery Room Air 08/17/25 18:06 05/16/25 18:08 05/16/25 21:17 Temperature Pulse Rate 105 H 114 H 87 Respiratory Rate 20 Blood Pressure 153/82 H 164/141 H 139/81 Pulse Oximetry 98 Oxygen Delivery 05/16/25 21:34 05/16/25 22:58 05/16/25 23:37 Temperature Pulse Rate 103 H 92 92 Respiratory Rate 18 16 16 Blood Pressure 133/64 141/76 H 141/76 H Pulse Oximetry 99 100 100 Oxygen Delivery 05/16/25 23:40 05/17/25 00:00 05/17/25 00:00 Temperature 37.1 C Pulse Rate 100 96 Respiratory Rate 15 Blood Pressure 127/75 Pulse Oximetry 100 Oxygen Delivery Room Air 05/17/25 00:00 05/17/25 02:00 05/17/25 02:00 Temperature 36.9 C Pulse Rate 101 H 91 91 Respiratory Rate 15 22 H Blood Pressure 125/67 113/60 Pulse Oximetry 100 98 Oxygen Delivery 05/17/25 04:00 05/17/25 04:00 05/17/25 04:00 Temperature Pulse Rate 79 79 Respiratory Rate 21 H Blood Pressure 107/65 Pulse Oximetry 98 Oxygen Delivery Room Air 05/17/25 07:24 Temperature 36.7 C Pulse Rate 97 Respiratory Rate 17 Blood Pressure 117/67 Pulse Oximetry 99 Oxygen Delivery Intake/Output Intake/Output: Intake & Output 05/14/25 05/15/25 05/16/25 05/17/25 23:59 23:59 23:59 23:59 Intake Total 3016.5 927.3 Output Total 520 Balance 3016.5 407.3 Meds/Results Medications: Active Medications Generic Name Dose Route Start Last Admin Trade Name Freq PRN Reason Stop Dose Admin Buspirone HCl 7.5 mg 05/17/25 09:00 05/17/25 08:54 Buspirone Hcl 2.5 Mg Tablet PO 7.5 mg DAILY NATHALY Administration Dextrose 12.5 gm 05/17/25 02:01 Dextrose 50% 25 Gm/50 Ml Syringe IV PUSH PRN PRN Hypoglycemia Protocol Enoxaparin Sodium 40 mg 05/17/25 09:00 05/17/25 08:55 Enoxaparin 40 Mg/0.4 Ml Syringe SUB-Q 40 mg DAILY NATHALY Administration Escitalopram Oxalate 20 mg 08/18/25 09:00 05/17/25 08:54 Escitalopram Oxalate 10 Mg Tablet PO 20 mg DAILY NATHALY Administration Glucagon 1 mg 05/17/25 02:01 Glucagon For Inj 1 Mg Vial IM PRN PRN Hypoglycemia Protocol Glucose 15 gm 05/17/25 02:01 Glucose Oral Gel 15 Gm Of Glucse In 37.5 Gm Tube PO PRN PRN Hypoglycemia Protocol Dextrose 1,000 mls @ 100 mls/hr 05/17/25 02:01 Dextrose 5% 1,000 Ml IVPB PRN PRN Hypoglycemia Protocol Insulin Aspart 3 - 6 units 05/17/25 08:00 05/17/25 07:41 Insulin Aspart (*Bkc) 100 Units/Ml SUB-Q Not Given TIDWM NATHALY Protocol Insulin Aspart 7 units 05/17/25 08:00 05/17/25 07:37 Insulin Aspart (*Bkc) 100 Units/Ml SUB-Q 7 units TIDWM NATHALY Administration Insulin Glargine 40 units 05/16/25 23:20 05/17/25 01:25 Insulin Glargine (*Bkc) 100 Units/Ml SUB-Q 40 units HS NATHALY Administration Radiology Results: ITS Impressions Abdomen/Pelvis CT 05/16/25 19:06 IMPRESSION: No acute findings within the abdomen or pelvis, as detailed above. Labs Labs: Laboratory Results - last 24 hr 05/16/25 05/16/25 05/16/25 17:32 17:32 17:32 WBC 13.9 H RBC 5.91 Hgb 18.0 D Hct 53.0 H MCV 89.7 MCH 30.5 MCHC 34.0 RDW 13.2 Plt Count 308 MPV 11.2 H Immature Gran % (Auto) 0.4 Neut % (Auto) 86.7 H Lymph % (Auto) 9.0 L [place] % (Auto) 3.5 Eos % (Auto) 0.1 Baso % (Auto) 0.3 Lymph # (Auto) 1.25 [place] # (Auto) 0.5 Eos # (Auto) 0.0 Baso # (Auto) 0.0 Abs Immat Gran (auto) 0.06 H Absolute Neuts (auto) 12.0 H Absolute Nucleated RBC 0.000 Nucleated RBC % 0.0 Puncture Site ABG pH ABG pCO2 ABG pO2 ABG PO2/FiO2 Ratio ABG HCO3 ABG O2 Saturation ABG O2 Content ABG Base Excess A-a Gradient Oxyhemoglobin Carboxyhemoglobin Methemoglobin Reduced Hemoglobin Total Hemoglobin O2 Delivery Device O2 Liters/Min FiO2 Sodium Cancelled 131 L Potassium Cancelled 4.6 Chloride Cancelled Carbon Dioxide Anion Gap BUN Creatinine Estim Creat Clear Calc Estimated GFR Glucose POC Capillary Glucose Hemoglobin A1c Calcium Phosphorus Magnesium Total Bilirubin AST ALT Alkaline Phosphatase Total Protein Albumin Lipase Beta-Hydroxybutyrate/Acetoacetate Urine Color Urine Appearance Urine pH Ur Specific [place] Urine Protein Urine Glucose (UA) Urine Ketones Ur Blood (Man) Urine Nitrate Urine Bilirubin Urine Urobilinogen Add Ur Microanalysis Leukocyte Esterase Rfl Urine RBC Urine WBC Ur Squamous Epith Cells Urine Bacteria Urine Casts Nasal MRSA (PCR) 05/16/25 05/16/25 05/16/25 17:32 17:32 17:32 WBC RBC Hgb Hct MCV MCH MCHC RDW Plt Count MPV Immature Gran % (Auto) Neut % (Auto) Lymph % (Auto) [place] % (Auto) Eos % (Auto) Baso % (Auto) Lymph # (Auto) [place] # (Auto) Eos # (Auto) Baso # (Auto) Abs Immat Gran (auto) Absolute Neuts (auto) Absolute Nucleated RBC Nucleated RBC % Puncture Site ABG pH ABG pCO2 ABG pO2 ABG PO2/FiO2 Ratio ABG HCO3 ABG O2 Saturation ABG O2 Content ABG Base Excess A-a Gradient Oxyhemoglobin Carboxyhemoglobin Methemoglobin Reduced Hemoglobin Total Hemoglobin O2 Delivery Device O2 Liters/Min FiO2 Sodium Potassium Chloride 93 L Carbon Dioxide Cancelled 14 L Anion Gap Cancelled 24 H BUN Cancelled Creatinine Estim Creat Clear Calc Estimated GFR Glucose POC Capillary Glucose Hemoglobin A1c Calcium Phosphorus Magnesium Total Bilirubin AST ALT Alkaline Phosphatase Total Protein Albumin Lipase Beta-Hydroxybutyrate/Acetoacetate Urine Color Urine Appearance Urine pH Ur Specific [place] Urine Protein Urine Glucose (UA) Urine Ketones Ur Blood (Man) Urine Nitrate Urine Bilirubin Urine Urobilinogen Add Ur Microanalysis Leukocyte Esterase Rfl Urine RBC Urine WBC Ur Squamous Epith Cells Urine Bacteria Urine Casts Nasal MRSA (PCR) 05/16/25 05/16/25 05/16/25 17:32 17:32 17:32 WBC RBC Hgb Hct MCV MCH MCHC RDW Plt Count MPV Immature Gran % (Auto) Neut % (Auto) Lymph % (Auto) [place] % (Auto) Eos % (Auto) Baso % (Auto) Lymph # (Auto) [place] # (Auto) Eos # (Auto) Baso # (Auto) Abs Immat Gran (auto) Absolute Neuts (auto) Absolute Nucleated RBC Nucleated RBC % Puncture Site ABG pH ABG pCO2 ABG pO2 ABG PO2/FiO2 Ratio ABG HCO3 ABG O2 Saturation ABG O2 Content ABG Base Excess A-a Gradient Oxyhemoglobin Carboxyhemoglobin Methemoglobin Reduced Hemoglobin Total Hemoglobin O2 Delivery Device O2 Liters/Min FiO2 Sodium Potassium Chloride Carbon Dioxide Anion Gap BUN 26 H D Creatinine Cancelled 1.18 Estim Creat Clear Calc Cancelled 81 Estimated GFR Cancelled Glucose POC Capillary Glucose Hemoglobin A1c Calcium Phosphorus Magnesium Total Bilirubin AST ALT Alkaline Phosphatase Total Protein Albumin Lipase Beta-Hydroxybutyrate/Acetoacetate Urine Color Urine Appearance Urine pH Ur Specific [place] Urine Protein Urine Glucose (UA) Urine Ketones Ur Blood (Man) Urine Nitrate Urine Bilirubin Urine Urobilinogen Add Ur Microanalysis Leukocyte Esterase Rfl Urine RBC Urine WBC Ur Squamous Epith Cells Urine Bacteria Urine Casts Nasal MRSA (PCR) 05/16/25 05/16/25 05/16/25 17:32 17:32 17:32 WBC RBC Hgb Hct MCV MCH MCHC RDW Plt Count MPV Immature Gran % (Auto) Neut % (Auto) Lymph % (Auto) [place] % (Auto) Eos % (Auto) Baso % (Auto) Lymph # (Auto) [place] # (Auto) Eos # (Auto) Baso # (Auto) Abs Immat Gran (auto) Absolute Neuts (auto) Absolute Nucleated RBC Nucleated RBC % Puncture Site ABG pH ABG pCO2 ABG pO2 ABG PO2/FiO2 Ratio ABG HCO3 ABG O2 Saturation ABG O2 Content ABG Base Excess A-a Gradient Oxyhemoglobin Carboxyhemoglobin Methemoglobin Reduced Hemoglobin Total Hemoglobin O2 Delivery Device O2 Liters/Min FiO2 Sodium Potassium Chloride Carbon Dioxide Anion Gap BUN Creatinine Estim Creat Clear Calc Estimated GFR > 60 Glucose Cancelled 309 H POC Capillary Glucose Hemoglobin A1c 8.1 H Calcium Cancelled 10.5 H Phosphorus 5.3 H Magnesium 2.0 Total Bilirubin Cancelled AST ALT Alkaline Phosphatase Total Protein Albumin Lipase Beta-Hydroxybutyrate/Acetoacetate Urine Color Urine Appearance Urine pH Ur Specific [place] Urine Protein Urine Glucose (UA) Urine Ketones Ur Blood (Man) Urine Nitrate Urine Bilirubin Urine Urobilinogen Add Ur Microanalysis Leukocyte Esterase Rfl Urine RBC Urine WBC Ur Squamous Epith Cells Urine Bacteria Urine Casts Nasal MRSA (PCR) 05/16/25 05/16/25 05/16/25 17:32 17:32 17:32 WBC RBC Hgb Hct MCV MCH MCHC RDW Plt Count MPV Immature Gran % (Auto) Neut % (Auto) Lymph % (Auto) [place] % (Auto) Eos % (Auto) Baso % (Auto) Lymph # (Auto) [place] # (Auto) Eos # (Auto) Baso # (Auto) Abs Immat Gran (auto) Absolute Neuts (auto) Absolute Nucleated RBC Nucleated RBC % Puncture Site ABG pH ABG pCO2 ABG pO2 ABG PO2/FiO2 Ratio ABG HCO3 ABG O2 Saturation ABG O2 Content ABG Base Excess A-a Gradient Oxyhemoglobin Carboxyhemoglobin Methemoglobin Reduced Hemoglobin Total Hemoglobin O2 Delivery Device O2 Liters/Min FiO2 Sodium Potassium Chloride Carbon Dioxide Anion Gap BUN Creatinine Estim Creat Clear Calc Estimated GFR Glucose POC Capillary Glucose Hemoglobin A1c Calcium Phosphorus Magnesium Total Bilirubin 1.4 H AST Cancelled 32 ALT Cancelled 19 Alkaline Phosphatase Cancelled Total Protein Albumin Lipase Beta-Hydroxybutyrate/Acetoacetate Urine Color Urine Appearance Urine pH Ur Specific [place] Urine Protein Urine Glucose (UA) Urine Ketones Ur Blood (Man) Urine Nitrate Urine Bilirubin Urine Urobilinogen Add Ur Microanalysis Leukocyte Esterase Rfl Urine RBC Urine WBC Ur Squamous Epith Cells Urine Bacteria Urine Casts Nasal MRSA (PCR) 05/16/25 05/16/25 05/16/25 17:32 17:32 17:32 WBC RBC Hgb Hct MCV MCH MCHC RDW Plt Count MPV Immature Gran % (Auto) Neut % (Auto) Lymph % (Auto) [place] % (Auto) Eos % (Auto) Baso % (Auto) Lymph # (Auto) [place] # (Auto) Eos # (Auto) Baso # (Auto) Abs Immat Gran (auto) Absolute Neuts (auto) Absolute Nucleated RBC Nucleated RBC % Puncture Site ABG pH ABG pCO2 ABG pO2 ABG PO2/FiO2 Ratio ABG HCO3 ABG O2 Saturation ABG O2 Content ABG Base Excess A-a Gradient Oxyhemoglobin Carboxyhemoglobin Methemoglobin Reduced Hemoglobin Total Hemoglobin O2 Delivery Device O2 Liters/Min FiO2 Sodium Potassium Chloride Carbon Dioxide Anion Gap BUN Creatinine Estim Creat Clear Calc Estimated GFR Glucose POC Capillary Glucose Hemoglobin A1c Calcium Phosphorus Magnesium Total Bilirubin AST ALT Alkaline Phosphatase 139 H Total Protein Cancelled 9.3 H Albumin Cancelled 5.5 H Lipase Cancelled Beta-Hydroxybutyrate/Acetoacetate Urine Color Urine Appearance Urine pH Ur Specific [place] Urine Protein Urine Glucose (UA) Urine Ketones Ur Blood (Man) Urine Nitrate Urine Bilirubin Urine Urobilinogen Add Ur Microanalysis Leukocyte Esterase Rfl Urine RBC Urine WBC Ur Squamous Epith Cells Urine Bacteria Urine Casts Nasal MRSA (PCR) 05/16/25 05/16/25 05/16/25 17:32 18:51 20:24 WBC RBC Hgb Hct MCV MCH MCHC RDW Plt Count MPV Immature Gran % (Auto) Neut % (Auto) Lymph % (Auto) [place] % (Auto) Eos % (Auto) Baso % (Auto) Lymph # (Auto) [place] # (Auto) Eos # (Auto) Baso # (Auto) Abs Immat Gran (auto) Absolute Neuts (auto) Absolute Nucleated RBC Nucleated RBC % Puncture Site Right radial ABG pH 7.417 ABG pCO2 30.9 L ABG pO2 105.2 H ABG PO2/FiO2 Ratio 5.01 ABG HCO3 19.5 L ABG O2 Saturation 98.0 ABG O2 Content 23.0 H ABG Base Excess -3.7 A-a Gradient 30.3 Oxyhemoglobin 96.5 Carboxyhemoglobin 1.2 Methemoglobin 0.5 Reduced Hemoglobin 1.8 Total Hemoglobin 16.9 O2 Delivery Device Room air O2 Liters/Min Not Reportable FiO2 21 Sodium Potassium Chloride Carbon Dioxide Anion Gap BUN Creatinine Estim Creat Clear Calc Estimated GFR Glucose POC Capillary Glucose Hemoglobin A1c Calcium Phosphorus Magnesium Total Bilirubin AST ALT Alkaline Phosphatase Total Protein Albumin Lipase 16 L Beta-Hydroxybutyrate/Acetoacetate 3.37 H Urine Color Yellow Urine Appearance Clear Urine pH 5.5 Ur Specific [place] 1.042 H Urine Protein 2+ H Urine Glucose (UA) 3+ H Urine Ketones 2+ H Ur Blood (Man) Negative Urine Nitrate Negative Urine Bilirubin Negative Urine Urobilinogen 1.0 Add Ur Microanalysis Reviewed Leukocyte Esterase Rfl Negative Urine RBC 0-2 Urine WBC 0-5 Ur Squamous Epith Cells Occasional Urine Bacteria None seen Urine Casts 11-20 Nasal MRSA (PCR) 05/16/25 05/16/25 05/16/25 21:16 21:54 22:31 WBC RBC Hgb Hct MCV MCH MCHC RDW Plt Count MPV Immature Gran % (Auto) Neut % (Auto) Lymph % (Auto) [place] % (Auto) Eos % (Auto) Baso % (Auto) Lymph # (Auto) [place] # (Auto) Eos # (Auto) Baso # (Auto) Abs Immat Gran (auto) Absolute Neuts (auto) Absolute Nucleated RBC Nucleated RBC % Puncture Site ABG pH ABG pCO2 ABG pO2 ABG PO2/FiO2 Ratio ABG HCO3 ABG O2 Saturation ABG O2 Content ABG Base Excess A-a Gradient Oxyhemoglobin Carboxyhemoglobin Methemoglobin Reduced Hemoglobin Total Hemoglobin O2 Delivery Device O2 Liters/Min FiO2 Sodium Cancelled Potassium Cancelled Chloride Cancelled Carbon Dioxide Cancelled Anion Gap Cancelled BUN Cancelled Creatinine Cancelled Estim Creat Clear Calc Cancelled Estimated GFR Cancelled Glucose Cancelled POC Capillary Glucose 270 H 222 H Hemoglobin A1c Calcium Cancelled Phosphorus Magnesium Total Bilirubin AST ALT Alkaline Phosphatase Total Protein Albumin Lipase Beta-Hydroxybutyrate/Acetoacetate Urine Color Urine Appearance Urine pH Ur Specific [place] Urine Protein Urine Glucose (UA) Urine Ketones Ur Blood (Man) Urine Nitrate Urine Bilirubin Urine Urobilinogen Add Ur Microanalysis Leukocyte Esterase Rfl Urine RBC Urine WBC Ur Squamous Epith Cells Urine Bacteria Urine Casts Nasal MRSA (PCR) 05/16/25 05/16/25 05/17/25 23:29 23:46 00:22 WBC RBC Hgb Hct MCV MCH MCHC RDW Plt Count MPV Immature Gran % (Auto) Neut % (Auto) Lymph % (Auto) [place] % (Auto) Eos % (Auto) Baso % (Auto) Lymph # (Auto) [place] # (Auto) Eos # (Auto) Baso # (Auto) Abs Immat Gran (auto) Absolute Neuts (auto) Absolute Nucleated RBC Nucleated RBC % Puncture Site ABG pH ABG pCO2 ABG pO2 ABG PO2/FiO2 Ratio ABG HCO3 ABG O2 Saturation ABG O2 Content ABG Base Excess A-a Gradient Oxyhemoglobin Carboxyhemoglobin Methemoglobin Reduced Hemoglobin Total Hemoglobin O2 Delivery Device O2 Liters/Min FiO2 Sodium Potassium Chloride Carbon Dioxide Anion Gap BUN Creatinine Estim Creat Clear Calc Estimated GFR Glucose POC Capillary Glucose 169 H 114 H Hemoglobin A1c Calcium Phosphorus Magnesium Total Bilirubin AST ALT Alkaline Phosphatase Total Protein Albumin Lipase Beta-Hydroxybutyrate/Acetoacetate Urine Color Urine Appearance Urine pH Ur Specific [place] Urine Protein Urine Glucose (UA) Urine Ketones Ur Blood (Man) Urine Nitrate Urine Bilirubin Urine Urobilinogen Add Ur Microanalysis Leukocyte Esterase Rfl Urine RBC Urine WBC Ur Squamous Epith Cells Urine Bacteria Urine Casts Nasal MRSA (PCR) Not detected 05/17/25 05/17/25 05/17/25 01:19 02:19 03:22 WBC RBC Hgb Hct MCV MCH MCHC RDW Plt Count MPV Immature Gran % (Auto) Neut % (Auto) Lymph % (Auto) [place] % (Auto) Eos % (Auto) Baso % (Auto) Lymph # (Auto) [place] # (Auto) Eos # (Auto) Baso # (Auto) Abs Immat Gran (auto) Absolute Neuts (auto) Absolute Nucleated RBC Nucleated RBC % Puncture Site ABG pH ABG pCO2 ABG pO2 ABG PO2/FiO2 Ratio ABG HCO3 ABG O2 Saturation ABG O2 Content ABG Base Excess A-a Gradient Oxyhemoglobin Carboxyhemoglobin Methemoglobin Reduced Hemoglobin Total Hemoglobin O2 Delivery Device O2 Liters/Min FiO2 Sodium Potassium Chloride Carbon Dioxide Anion Gap BUN Creatinine Estim Creat Clear Calc Estimated GFR Glucose POC Capillary Glucose 162 H 272 H 239 H Hemoglobin A1c Calcium Phosphorus Magnesium Total Bilirubin AST ALT Alkaline Phosphatase Total Protein Albumin Lipase Beta-Hydroxybutyrate/Acetoacetate Urine Color Urine Appearance Urine pH Ur Specific [place] Urine Protein Urine Glucose (UA) Urine Ketones Ur Blood (Man) Urine Nitrate Urine Bilirubin Urine Urobilinogen Add Ur Microanalysis Leukocyte Esterase Rfl Urine RBC Urine WBC Ur Squamous Epith Cells Urine Bacteria Urine Casts Nasal MRSA (PCR) 05/17/25 05/17/25 05/17/25 04:37 07:21 23:53 WBC 12.8 H RBC 4.58 L Hgb 14.2 D Hct 42.0 MCV 91.7 MCH 31.0 MCHC 33.8 RDW 13.3 Plt Count 233 MPV 11.2 H Immature Gran % (Auto) 0.4 Neut % (Auto) 76.7 H Lymph % (Auto) 14.5 L [place] % (Auto) 7.9 Eos % (Auto) 0.1 Baso % (Auto) 0.4 Lymph # (Auto) 1.85 [place] # (Auto) 1.0 H Eos # (Auto) 0.0 Baso # (Auto) 0.1 Abs Immat Gran (auto) 0.05 H Absolute Neuts (auto) 9.8 H Absolute Nucleated RBC 0.000 Nucleated RBC % 0.0 Puncture Site ABG pH ABG pCO2 ABG pO2 ABG PO2/FiO2 Ratio ABG HCO3 ABG O2 Saturation ABG O2 Content ABG Base Excess A-a Gradient Oxyhemoglobin Carboxyhemoglobin Methemoglobin Reduced Hemoglobin Total Hemoglobin O2 Delivery Device O2 Liters/Min FiO2 Sodium 135 L Potassium 3.8 Chloride 101 Carbon Dioxide 22 Anion Gap 12 BUN 22 H Creatinine 0.94 Estim Creat Clear Calc 102 Estimated GFR > 60 Glucose 129 H POC Capillary Glucose 197 H Hemoglobin A1c Calcium 8.9 Phosphorus Magnesium Total Bilirubin AST ALT Alkaline Phosphatase Total Protein Albumin Lipase Beta-Hydroxybutyrate/Acetoacetate Urine Color Urine Appearance Urine pH Ur Specific [place] Urine Protein Urine Glucose (UA) Urine Ketones Ur Blood (Man) Urine Nitrate Urine Bilirubin Urine Urobilinogen Add Ur Microanalysis Leukocyte Esterase Rfl Urine RBC Urine WBC Ur Squamous Epith Cells Urine Bacteria Urine Casts Nasal MRSA (PCR) Quality VTE Prophylaxis VTE prophylaxis: pharmacologic ordered (Lovenox 40 mg subQ daily.)
--- NOTE | 2025-05-17 12:37 | ECG_ITS ---
Test Date: 2025-05-17 12:25:25 Measurements Intervals [place] Rate: 71 P: -21 MA: 139 QRS: 109 QRSD: 96 T: 52 QT: 392 QTc: 428 Interpretive Statements SINUS RHYTHM WITH SINUS ARRHYTHMIA RIGHT AXIS DEVIATION INCOMPLETE RIGHT BUNDLE BRANCH BLOCK DELAYED PRECORDIAL R/S TRANSITION BASELINE ARTIFACT- I, II, III, AVR, AVL, AVF BORDERLINE ECG No previous ECG available for comparison Electronically Signed On 05-17-2025 13:33:30 CDT by Gerardo Valdes D.O.
[2025-05-17] MEDS: INSULIN ASPART (*BKC) 100 UNITS/ML SUB-Q ×2 (12:47→17:45)
--- OUTSIDE RECORDS SUMMARY | 2025-05-17 12:55 | XMS_ITS | Patient Health Record ---
Author Organization [facility] Address [address] [address] Care Team Providers Care Test Consultant Name Role Phone Ludy Kramer Unavailable [phone] Reason For Referral No Information Medications Medication [...] Oral 0; Duration: 1 02/23/2020 Active Pen [place] 32 gauge x 5/32 NEEDLE, DISPOSABLE Use to inject insulin QID. MISCELLANEOUS; Duration: 30 02/16/2020 Active NovoLOG FlexPen 100 UNIT/ML Solution Pen-injector inject up to 10 units TID ac by subcutaneous route. Subcutaneous 0; Duration: 02/23/2020 Active OneTouch Ultra Blue Test Strip strip use to check BG QID. 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 , Substance Use :: Alcohol :: Current some day :: note : Use status used: Current some day , Substance Use :: Tobacco :: Never Plan Of Treatment No Information Insurance Providers Payer Name Payer Address Payer Phone Subscriber Number Group Number Insured Name Patient Relationship to Insured Coverage Start Date Coverage End Date [employer] [employer] 1 [address] Spencer [place] [facility] [address] [place] [address] [id number] Zac Lang Self - patient is the insured 8 [employer] [address] [place] [address] [phone] [id number] Zac Lang Self - patient is the insured 7 [phone]
--- OUTSIDE RECORDS SUMMARY | 2025-05-17 12:55 | XMS_ITS | Patient Health Record ---
Author Organization [facility] [employer] [facility] Address [address] [place] [address] Care Team Providers Care Produce Sorter Name Role Phone Ariana Alarcon [phone] Reason For Referral No Information Encounters Encounter Location Date Provider Diagnosis [facility] Alarcon [address] [place] [address] 08/10/2024 Ariana Alarcon Plan Of Treatment No Information
--- OUTSIDE RECORDS SUMMARY | 2025-05-17 12:55 | XMS_ITS | Encounter Summary ---
Author Organization [facility] Address [address] [place] [address] Care Team Providers Care Credit Risk Modeler Name Role Phone Ariana Skelton NP Primary Care Provider [phone] Reason for Referral * MRI/CAT/PET Scan (Routine) - Closed Specialty Diagnoses / Procedures Referred By Contac t Referred To Contact Radiology Procedures CT Abdomen Pelvis W Contrast Car Luong MD [address] [place] [address] Phone: tel: Referral ID Status Reason Start Date Expiration Date Visits Re quested Visits Authorized [id number] Closed 05/17/2025 06/16/2026 1 1 Encounter Details Date Type Department Care Team (Late st Contact Info) Description 05/17/[address] [facility] Primary Care at [address] [address] Car Luong MD [address] [place] [address] Social History Tobacco Use Types Packs/Day Years Used Date Smoking Tobacco: Every Day Cigarettes 0.2 11.6 Started: 2013 Vaping Started: 2013 Passive Smoke Exposure: Current PHQ-2 Answer Date Recorded PHQ-2 Total Score (If total score is 3 or more points, staff should administer the PHQ-9) 0 12/08/2024 Sex and Gender Information Value Date Recorded Sex Assigned at Not on file Legal Sex Male 8:09 AM CDT Gender Identity Not on file Sexual Orientation Not on file documented as of this encounter Plan of Treatment Not on file documented as of this encounter Procedures Procedure Name Priority Date/Time Associated Diagnosis Comments CT ABDOMEN PELVIS W CONTRAST Schedule Routine, Read Routine (OP Routine) 05/16/2025 10:48 AM CDT documented in this encounter Results * CT Abdomen Pelvis W Contrast (05/16/2025 10:48 AM CDT) Anatomical Region Laterality Modality Body N/A Computed Tomogra phy us Historical Provider MD BORJA CT PROCEDURES Final R esult documented in this encounter Visit Diagnoses Not on filedocumented in this encounter Care Teams Credit Risk Modeler Relationship Specialty Start Date End Date Ariana Skelton NP [address] [place] [address] PCP - General Family Medicine 05/07/23 documented as of this encounter
--- OUTSIDE RECORDS SUMMARY | 2025-05-17 12:55 | XMS_ITS | Patient Health Record ---
Author Organization [employer] Address [address] [place] [address] Care Team Providers Care Wafer Polishing Lead Worker Name Role Phone Ariana Alarcon Unavailable [phone] Reason For Referral No Information Encounters Encounter Location Date Provider Diagnosis [facility], [facility] - Ariana Alarcon [address] [place] [address] 08/10/2024 Ariana Alarcon Plan Of Treatment No Information
--- OUTSIDE RECORDS SUMMARY | 2025-05-17 12:55 | XMS_ITS ---
Author Organization [employer] Address [address] [place] [address] Care Team Providers Care Revenue Enforcement Collection Agent Name Role Phone Ariana Alarcon [phone] REASON FOR VISIT Diabetes Encounters Encounter Location Date Provider Diagnosis [facility], [facility] - Ariana Alarcon [address] [place] [address] 08/11/2024 Ariana Alarcon Plan Of Treatment No Information Progress Notes * Taiwo MADRIGALDOB: [birth year] (34 yo M)Acc No.[id number]:08/11/2024 Progress Notes Patient: Zac FINCHley Provider: Justin Alarcon MD :1990 A ge:33 Y S ex:Male Date:08/11/2024 Address:[address] [place], [place] [id number] Subjective: * Chief Complaints: * 1 . Diabetes. * HPI: D iabetes: 33 yo male comes in to establish care in management of type 2 DM. * Medical History: Objective: * Vitals: Assessment: Plan: * Treatment: * Billing Information: * Visit Code: * Procedure Codes: * Electronic signature of Jaycob Alarcon MD on 05/17/2025 at 12:55 PM CDT Sign off status: Pending * Provider: Justin Alarcon MD Date: 10/11/2023 Generated for Mackenziei ng/Faxing/eTransmitting on: 0 05/17/2025 12:55 PM CDT History and Physical Notes * HPI (History of Present Illness) Category Sub-Category Detail Notes Category Not es Diabetes 33 yo male come s in to establish care in management of type 2 DM
--- OUTSIDE RECORDS SUMMARY | 2025-05-17 12:55 | XMS_ITS ---
Author Organization [facility] [employer] [facility] [employer]. Address [address] [place] [address] Care Team Providers Care Diesel Mechanic Helper Name Role Phone Ariana Alarcon [phone] REASON FOR VISIT Diabetes Encounters Encounter Location Date Provider Diagnosis [facility] Alarcon [address] [place] [address] 08/11/2024 Ariana Alarcon Plan Of Treatment No Information History and Physical Notes * HPI (History of Present Illness) Category Sub-Category Detail Notes Category Not es Migrated HPI Diabetes : 33 y o male comes in to establish care in management of type 2 DM Progress Notes * Taiwo MADRIGALDOB: [birth year] (34 yo M)Acc No.[id number]:08/11/2024 Progress Notes Patient: Taiwo Smallwood Provider: Justin Alarcon MD :1990 A ge:33 Y S ex:Male Date:08/11/2024 Address:[address] [place], [place] [id number] Subjective: * Chief Complaints: * D iabetes * HPI: M igrated HPI: Diabetes : 33 yo male comes in to establish care in management of type 2 DM. * Electronic signature of Jaycob Alarcon MD on 05/17/2025 at 12:55 PM CDT Sign off status: Pending * Provider: Justin Alarcon MD Date: 1 10/11/2023 Generated for Jennifer ng/Fapennyg/eTransmitting on: 0 05/17/2025 12:55 PM CDT
--- OUTSIDE RECORDS SUMMARY | 2025-05-17 12:55 | XMS_ITS | Clinical Summary ---
Author Organization [facility] Address [address] [place] [address] Care Team Providers Care Supercalender Operator Name Role Phone Ariana Skelton NP Primary Care Provider [phone] Allergies Active Allergy Reactions Criticality Noted Date [...] monitoring. Assessment & Plan (11/20/2023 4:40 PM ENVIRONMENTAL EMERGENCIES PLANNER): A1c x 10/2022 was 11.2%. Patient has [...] kept. Assessment & Plan (11/28/2022 12:02 AM ENVIRONMENTAL EMERGENCIES PLANNER): - chronic, poorly controlled - worse - [...] - due, reminder provided, referral placed to [facility] - urine micro albumin - completed today [...] disease) Assessment & Plan (11/28/2022 12:01 AM ENVIRONMENTAL EMERGENCIES PLANNER): - chronic, stable/well controlled - currently on [...] of cdif and vit B12 deficiency with manager terminal use of PPI. Recommend the following changes: [...] weeks. Assessment & Plan (11/28/2022 12:06 AM ENVIRONMENTAL EMERGENCIES PLANNER): - chronic, well controlled - co-existign depression [...] 01/30/2018 Cannabis abuse 01/30/2018 Metabolic acidosis 01/30/2018 Encounters Date Type Department Care Team Description 05/17/2025 Orders Only [facility] Primary Care at [address] [address] Provider, MD Car from Last 3 Months Immunizations Immunization Administration Dates Next Due HPV, [...] CDT Respiratory Rate 18 11/01/2023 10:21 AM ENVIRONMENTAL EMERGENCIES PLANNER Oxygen Saturation 98% 12/08/2024 2:41 PM CDT [...] 11/29/2023 11/28/2022, 06/07/2022 Hemoglobin A1C 05/21/2024 11/21/2023, 02/2 03/2023, 06/26/2022 Albumin Creatinine Ratio, Urine 11/21/2024 Lipid [...] Routine (OP Routine) 05/16/2025 10:48 AM CDT EGFR Routine 11/21/2023 11:57 AM ENVIRONMENTAL EMERGENCIES PLANNER Type 1 diabetes mellitus with hyperglycemia (HCC) HEMOGLOBIN A1C Routine 11/21/2023 11:57 AM ENVIRONMENTAL EMERGENCIES PLANNER Type 1 diabetes mellitus with hyperglycemia (HCC) LIPID PANEL Routine 11/21/2023 11:57 AM ENVIRONMENTAL EMERGENCIES PLANNER Type 1 diabetes mellitus with hyperglycemia (HCC) ALBUMIN CREATININE RATIO, URINE Routine 11/21/2023 11:57 AM ENVIRONMENTAL EMERGENCIES PLANNER Type 1 diabetes mellitus with hyperglycemia (HCC) THYROID FUNCTION CASCADE Routine 11/28/2022 10:35 AM ENVIRONMENTAL EMERGENCIES PLANNER Type 1 diabetes mellitus with hyperglycemia (HCC) from Last 3 Months or Most Recently Relevant to Health Maintenance Results * CT Abdomen Pelvis W Contrast (05/16/2025 10:48 AM CDT) Anatomical Region Laterality Modality Body N/A Computed Tomogra phy Historical Provider MD BORJA CT PROCEDURES Final R esult * eGFR (11/21/2023 11:57 AM ENVIRONMENTAL EMERGENCIES PLANNER) eGFR 120 mL/min/1. 73 m2 SHAKEEL HOPSON [...] reviewed 2021. Blood 11/21/2023 11:5 7 AM ENVIRONMENTAL EMERGENCIES PLANNER 11/21/2023 9:20 PM ENVIRONMENTAL EMERGENCIES PLANNER Ariana Skelton NP LAB BLOOD ORDERABLES Final Resul t SHAKEEL HOPSON [address] Department [place] [address] * Albumin Creatinine Ratio, Urine (11/21/2023 11:57 AM ENVIRONMENTAL EMERGENCIES PLANNER) Albumin Ur <12.0 mg/L SHAKEEL HOPSON Comment: Interpretive Data No reference range established. Current interpretive data was last revised 2019. Creatinine Ur 30.0 mg/dL SHAKEEL HOPSON Comment: Interpretive Data No reference range established. Current interpretive data was last revised 2019. Albumin Creatinine Ratio, Ur See Comment 1 - 29 SHAKEEL Comment:Unable to calculate Urine 11/21/2023 11:5 7 AM ENVIRONMENTAL EMERGENCIES PLANNER 11/21/2023 9:09 PM ENVIRONMENTAL EMERGENCIES PLANNER us Ariana Skelton SIGHTSEEING GUIDE LAB URINE ORDERABLES Final Resul t Performing Organization Address [facility] de Phone Number SHAKEEL HOPSON [address] Department [place] [address] * (ABNORMAL) Hemoglobin A1c (11/21/2023 11:57 AM ENVIRONMENTAL EMERGENCIES PLANNER) Hgb A1C 9.3(H) 4.0 - 5.6 % SHAKEEL Estimated Average Glucose 220 mg/dL SHAKEEL HOPSON Comment: The ADA recommends reporting an estimated Average Glucose (eAG) with all Hemoglobin A1c results using the equation derived from a study of 507 normal and diabetic adults. Minority populations were underrepresented and children were not included. (Diabetes Care 31:0656-1673, 2008). The eAG is not equivalent to a fasting glucose. Blood 11/21/2023 11:5 7 AM ENVIRONMENTAL EMERGENCIES PLANNER 11/21/2023 9:09 PM ENVIRONMENTAL EMERGENCIES PLANNER us Ariana Skelton SIGHTSEEING GUIDE LAB BLOOD ORDERABLES Final Resul t Performing Organization Address [facility] Co de Phone Number SHAKEEL HOPSON [address] [facility] [place] [address] * Lipid panel (11/21/2023 11:57 AM ENVIRONMENTAL EMERGENCIES PLANNER) Cholesterol 154 30 - 199 mg/dL SHAKEEL Comment: Interpretive Data Ages < or = [...] on 2018. Triglycerides 49 <=149 mg/dL SHAKEEL Comment: Interpretive Data Ages < or = [...] on 2018. HDL 51 >=40 mg/dL SHAKEEL Comment: Interpretive Data Ages < or = [...] 2018. LDL, calculated 93 <=129 mg/dL SHAKEEL Comment: Interpretive Data Ages < or = [...] on 2018. Non-HDL Cholesterol 103 mg/dL SHAKEEL Comment: Interpretive Data Ages < or = [...] last revised on 2018. Chol/HDL ratio 3 [facility] Blood 11/21/2023 11:5 7 AM ENVIRONMENTAL EMERGENCIES PLANNER 11/21/2023 9:09 PM ENVIRONMENTAL EMERGENCIES PLANNER Ariana Skelton NP LAB BLOOD ORDERABLES Final Resul t SHAKEEL [address] Department [place] [address] * TSH reflex to free T4 (11/28/2022 10:35 AM ENVIRONMENTAL EMERGENCIES PLANNER) TSH 1.48 0.30 - 4.20 mcIUnit/mL SHAKE[facility] (YAQUELIN) Blood 11/28/2022 10:3 5 AM ENVIRONMENTAL EMERGENCIES PLANNER 11/28/2022 10:53 AM ENVIRONMENTAL EMERGENCIES PLANNER Mio Yang MD LAB BLOOD ORDERABLES Fi nal Result SHAKEEL AHMADI (YAQUELIN) [address] [facility] Department [place] [address] from Last 3 Months or Most Recently Relevant to Health Maintenance Insurance AETNA SIG [id number] AETNA SIG [id number] Care Teams Supercalender Operator Relationship Specialty Start Date End Date Ariana Skelton NP [address] [facility] [address] [id number] PCP - General Family Medicine 05/07/23
[2025-05-18 05:15] VITALS: BP 123/75; PULSE 79; RESP 14; TEMP 36.9; O2SAT 100
--- NOTE | 2025-05-18 06:48 | PC.NURSE ---
06:40 called provider- Dr. Nieves was notified, pt blood glucose been dropping during the night often and despite drinking juice every time, still dropping. Pt will be getting D 50% prn by the provider order and Insulin orders were adjusted by order. Please monitor closely. Thank you.
[2025-05-18] MEDS: DEXTROSE 50% 25 GM/50 ML SYRINGE IV PUSH (06:52)
--- NOTE | 2025-05-18 08:21 | P.DS_ITS ---
DS: Admitting Diagnosis Discharge Date 05/18/25 Admitting Diagnosis Nausea vomiting that started on the 16 DS: Discharge Diagnosis Discharge Diagnosis (1) DKA, type 1, not at goal: Code(s): E10.10 - Type 1 diabetes mellitus with ketoacidosis without coma Status: Acute (2) Severe dehydration: Code(s): E86.0 - Dehydration Status: Acute (3) Anxiety and depression: Code(s): F41.9 - Anxiety disorder, unspecified; F32.A - Depression, unspecified Status: Acute Plan Patient has DKA secondary to difficulty obtaining insulin. The patient has no underlying infection or other inciting sources for DKA. His diabetes is historically poorly controlled but remarkably his A1c is significantly better than what he has reported in the past with A1c of 8.1%. He was admitted to the ICU within a couple of hours of arriving to the ICU and after receiving 0.25 L fluid bolus as well as maintenance fluids and insulin drip per DKA protocol pat ient anion gap and serum bicarb had already normalized. The patient had resolution of his nausea vomiting. His tachycardia and also resolved. Subsequently I switch the patient to Lantus in moderate sliding scale insulin as well as mealtime bolus insulin. As the patient's acidosis has already resolved I will cancel the acting instructor consult and as long as the patient is anion gap and serum bicarb remains stable I will plan to transfer the patient to the medical floor in a.m.. On discharge of the patient cannot obtain Lantus he could be discharged on NPH insulin but I discussed with the patient increasing his doses of NPH insulin to 30 units with b.i.d. dosing instead of q.12 hours dosing. Also I recommended to the patient that he continue insulin to carb dosing for his mealtime of 1 unit for every 10 carbs and suggested increasing his correction factor for 1 giving himself 1 unit of insulin for every 20 mg/dL of glucose above 120. And to continue this until follows up with his casket assembler metal. Ideally would be best if we could discharge the patient with a script for Lantus. He would prefer vials of insulin with syringes instead of insulin pens. The importance of frequent Accu-Cheks and glucose monitoring were discussed in detail. Will consult hematology nurse educator and care coordination. DS: Summary Hospital Course Hospital Course: Today patient symptoms have improved his blood sugars better, patient was seen by the hematology nurse educator and will follow insulin regiment recommended by the educator and will follow up with his casket assembler metal as soon as possible. patient is clinically stable, will dicharge home today. Time Spent with Patient Time attestation: Total time spent providing and/or coordinating discharge services: DS: Data Data Completed and Pending Labs on day of discharge: Labs from last 24 hours 05/18/25 05/18/25 05/18/25 07:28 06:31 04:34 POC Capillary Glucose 150 H 70 92 05/18/25 05/18/25 05/18/25 04:00 01:26 00:31 POC Capillary Glucose 76 109 H 91 05/18/25 05/17/25 05/17/25 00:14 20:27 16:34 POC Capillary Glucose 63 L 141 H 133 H 05/17/25 05/17/25 12:09 10:27 POC Capillary Glucose 137 H 134 H Discharge Plan Discharge Attending physician on discharge: Amy Nieves Consulting providers: Gerardo Valdes; Iker Manjarrez; Hyacinth Cadet Discharging Clinician: Rosalia Oneal Patient Disposition: Home Activity: as tolerated Diet: diabetic Discharge Instructions: patient is instructed to follow up with his casket assembler metal and primary care provider as soon as possible, patient is instructed if any symptoms redevelop to go to nearest ER. Patient Instructions: Antibiotic Form Patient Language: Romanian Stand Alone Forms: General Discharge Information Follow-up/Referrals: Nafisa,Ariana Goldsmith APRN [Primary Care Provider, Unknown] Discharge Medications: New dextrose [Glutose-15] 40 % Gel 15 g PO PRN PRN (Reason: Hypoglycemia) Qty: 112.5 0RF insulin aspart U-100 [Novolog U-100 Insulin aspart] 100 unit/mL Solution 5 unit subcut TIDWM Qty: 10 0RF insulin aspart U-100 [Novolog U-100 Insulin aspart] 100 unit/mL Solution 3 - 6 unit subcut TIDWM Qty: 10 0RF Protocol: Insulin Corrective Moderate-Dose Condition: glucose < 70 mg/dl Dose/Route: Follow hypoglycemia orders Condition: glucose 70-200 mg/dl Dose/Route: No additional insulin Condition: glucose 201-250 mg/dl Dose/Route: 3 units sub-Q Condition: glucose 251-300 mg/dl Dose/Route: 4 units sub-Q Condition: glucose 301-350 mg/dl Dose/Route: 5 units sub-Q Condition: glucose 351-400 mg/dl Dose/Route: 6 units sub-Q Condition: glucose > 400 mg/dl Dose/Route: Call MD Protocol Text: *No Correction Dose at Bedtime* insulin degludec [Tresiba U-100 Insulin] 100 unit/mL solution 15 unit subcut BID Qty: 10 0RF pantoprazole 40 mg Tablet,Delayed Release (Dr/Ec) 40 mg PO QAM Qty: 30 0RF Continued (DME) pen needle, diabetic [BD Joyce 2nd Gen Pen Needle] 32 gauge x 5/32 needle MISCELLANEOUS escitalopram oxalate 20 mg tablet 20 mg PO DAILY Patient Comments: Pt states he cant remember if he has been taking this. States he lost one medication bottle buspirone 7.5 mg tablet 7.5 mg PO DAILY Held Humulin N NPH U-100 Insulin 100 unit/mL suspension 20 unit subcut BID Hold Instructions: until seen by his casket assembler metal Humulin R Regular U-100 Insuln 100 unit/mL solution 10 unit subcut TID Hold Instructions: until seen by his casket assembler metal Date of admission: 05/17/25 10:58 Primary Care Provider: NafisaAriana Admitting Provider: Amy Nieves Attending physician on admission: Rosalia Oneal Condition: Improved
[2025-05-18] MEDS: ENOXAPARIN 40 MG/0.4 ML SYRINGE SUB-Q (09:08)
[2025-05-18] MEDS: busPIRone HCL 2.5 MG TABLET 7.5 MG PO (09:09)
[2025-05-18] MEDS: PANTOPRAZOLE 40 MG TABLET PO (09:09)
[2025-05-18] MEDS: ESCITALOPRAM OXALATE 10 MG TABLET 20 MG PO (09:09)
--- NOTE | 2025-06-04 15:22 | PCCDE ---
06/04/25: DM Educator courtesy call attempted. Message left including call back numbers for both educators. LE.
== END 2025-05-18 09:36 | disposition home or self-care (01) ==
LOC: ANHED 18:12 → ANHICU 22:48 → ANH3MEDSUR 05-18 08:09 → ANHICU 05-19 07:35
PROVIDERS: Admitting Provider Internal Medicine; Emergency Provider Physician Assistant; PCP Nurse Practitioner Family; Visit Provider Family Medicine
DX: E10.10 Type 1 diabetes mellitus with ketoacidosis without coma (principal); E86.0 Dehydration; Z79.4 Long term (current) use of insulin; F17.210 Nicotine dependence, cigarettes, uncomplicated; F41.8 Other specified anxiety disorders
CPT/HCPCS: 36415; 36600; 74177; 80048; 80053; 81001; 82010; 82375; 82805; 82948; 83036; 83050; 83690; 83735; 84100; 85018; 85025; 87641; 93005; 96361; 96365; 96366; 96368; 96372; 96374; 96375; 99285; A9270; G0378; J1200; J1650; J1815; J2405; J2765; J3480; J7030; J7120; Q9967